=== PATIENT | female | born 1980 | race Caucasian/White ===

== ENCOUNTER 2019-04-05 07:57 | Inpatient (IN) | payer OTHER ==
[~2019-04-05] VITALS: Ht 172.7 cm; Wt 96.2 kg
[2019-04-05 08:49] VITALS: BP 140/85
--- NOTE | 2019-04-05 09:32 | PDOC1 ---
History and Physical Date of Admission Date of Admission DATE: 04/05/19 TIME: 09:32 Identification/Chief Complaint Chief Complaint transfer FROM [facility] , awoke with severe epigastric pain w/ radiation between shoulder blades on at 2:00 a.m, STILL PRESENT CT scan and labs show cholecystitis with possible common bile duct stone Past Medical History Past Medical History Past Medical History Psych: Anxiety Past Surgical History Past Surgical History: Other (salpingectomy) Family History Family History: obesity Social History No ALCOHOL: none Drugs: None Lives: with Family Cardiovascular: No pertinent hx Pulmonary: No pertinent hx Infectious disease: No pertinent hx Family History Family History: High Cholestrol Social History Smoke: No ALCOHOL: none Drugs: None Allergies Allergies: Coded Allergies: No Known Drug Allergies (Unverified , 04/05/19) ROS General: No: Chills, Night Sweats, Fatigue, Malaise, Appetite, Other PSYCHOLOGICAL ROS: YES: Anxiety; No: Behavioral Disorder, Concentration difficultie, Decreased libido, Depression, Disorientation, Hallucinations, Hostility, Irritablity, Memory difficulties, Mood Swings, Obsessive thoughts, Physical abuse, Sexual abuse, Sleep disturbances, Suicidal ideation, Other Eyes: No Blurry vision, No Decreased vision, No Double vision, No Dry eyes, No Excessive tearing, No Eye Pain, No Itchy Eyes, No Loss of vision, No Photophobia, No Scotomata, No Uses contacts, No Uses glasses, No Other HEENT: No: Heacaches, Visual Changes, Hearing change, Nasal congestion, Nasal discharge, Oral lesions, Sinus pain, Sore Throat, Epistaxis, Sneezing, Snoring, Tinnitus, Vertigo, Vocal changes, Other Hematological and Lymphatic: No: Bleeding Problems, Blood Clots, Blood Transfusions, Brusing, Night Sweats, Pallor, Swollen Lymph Nodes, Other ENDOCRINE: No: Breast Changes, Galactorrhea, Hair Pattern Changes, Hot Flashes, Malaise/lethargy, Mood Swings, Palpitations, Polydipsia/polyuria, Skin Changes, Temperature Intolerance, Unexpected Weight Changes, Other Breast: No New/Changing Breast Lumps, No Nipple changes, No Nipple discharge, No Other Respiratory: No: Cough, Hemoptysis, Orthopnea, Pleuritic Pain, Shortness of breath, SOB with excertion, Sputum Changes, Stridor, Tachypnea, Wheezing, Other Cardiovascular: No Chest Pain, No Palpitations, No Orthopnea, No Paroxysmal Noc. Dyspnea, No Edema, No Lt Headedness, No Other Gastrointestinal: Yes Nausea, Yes Vomiting, Yes Abdominal Pain; No Diarrhea, No Constipation, No Melena, No Hematochezia, No Other Genitourinary: YES Dysuria; No Frequency, No Incontinence, No Hematuria, No Retention, No Discharge, No Urgency, No Pain, No Flank Pain, No Other, No , No , No , No , No , No , No Musculoskeletal: No Gait Disturbance, No Joint Pain, No Joint Stiffness, No Joint Swelling, No Muscle Pain, No Muscular Weakness, No Pain In:, No Swelling In:, No Other Neurological: No Behavorial Changes, No Bowel/Bladder ControlChng, No Confusion, No Dizziness, No Gait Disturbance, No Headaches, No Impaired Coord/balance, No Memory Loss, No Numbness/Tingling, No Seizures, No Speech Problems, No Tremors, No Visual Changes, No Weakness, No Other Skin: No Dry Skin, No Eczema, No Hair Changes, No Lumps, No Mole Changes, No Mottling, No Nail Changes, No Pruritus, No Rash, No Skin Lesion Changes, No Other, No Acne Physical Exam General: Alert, Oriented X3, Cooperative, No acute distress, mild distress HEENT: PERRLA Lungs: Clear to auscultation, Normal air movement Heart: RRR, no thrills Cardiovascular: S1, S2 Breasts: Not examined Abdomen: Normal bowel sounds, Other (MILD EPIGASTRIC TENDERNESS) Rectal Exam: not examined PELVIC: Examination not indicated Extremities: No cyanosis Neuro: Normal speech, Strength at 5/5 X4 ext, Cranial nerves 3-12 NL Psych/Mental Status: Mental status NL, Mood NL Vitals Vitals Vital Signs Date Time Temp Pulse Resp B/P (MAP) Pulse Ox O2 Delivery O2 Flow Rate FiO2 04/05/19 08:49 98.3 17 140/85 (103) 96 Room Air 98.[address] scan and labs show cholecystitis with possible common bile duct stone VTE Prophylaxis Ordered VTE Prophylaxis Devices: Yes VTE Pharmacological Prophylaxi: Yes Assessment/Plan Assessment/Plan IMPRESSION INTRACTABLE abd pain, n/v Leukocytosis, elevated LFTs, UTI Cholelithiasis///, dilated CBD CT scan and labs show cholecystitis with possible common bile duct stone GERD -- PLAN NPO cholecystectomy w/ IOC 04/06. abd US. POSSIBLE ERCP IV PROTONIX. DVT PROPHYLAXIS IV FLUID SUPPORT EMPERIC IV ANTIBIOTICS, ZOSYN AM LABS, URINE CULTURE BLOOD CULTURE GI CONSULT GEN SURG CONSULT 67 MIN PT EXAM, CHART REVIEW, > 50% OF TIME SPENT WITH EXAM, CHART REVIEW, PT CARE COORDINATION UGO EDEN MD Apr 05, 2019 09:32
[2019-04-05] MEDS ORDERED: ALBUTEROL SULFATE 2.5 MG/3 ML NEBU. NEB PRN (09:45)
[2019-04-05] MEDS ORDERED: cloNIDine HCL 0.1 MG TABLET PO PRN (09:45)
[2019-04-05] MEDS ORDERED: DOCUSATE SODIUM 100 MG CAPSULE. PO PRN (09:45)
[2019-04-05] MEDS ORDERED: ONDANSETRON PF 4 MG/2 ML VIAL. IV PRN (09:45)
[2019-04-05] MEDS ORDERED: ACETAMINOPHEN 650 MG/20.3 ML SOLUTION. GT PRN (09:45)
[2019-04-05] MEDS ORDERED: 0.9 % SODIUM CHLORIDE 10 ML DISP.SYRIN. IV PRN (09:45)
[2019-04-05] MEDS ORDERED: SODIUM PHOSPHATES 19/7GM 133 ML ENEMA. PR PRN (09:45)
[2019-04-05] MEDS ORDERED: OMEP20TA63 PO (09:47)
[2019-04-05] MEDS ORDERED: LEXAPRO5 MG PO (09:47)
--- NOTE | 2019-04-05 10:12 | PDOC2 ---
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 However pain returned and was severe. Associated nausea and emesis. Similar symptoms in past and was evaluated at [facility] with stones, however they felt at that time more likely related to GERD CT at [facility] showing cholecystitis, possible choledocholithiasis Past Medical History Psych: Anxiety Past Surgical History Past Surgical History: Other (salpingectomy) Family History Family History: Other (noncontributory to current illness) Social History No ALCOHOL: none Drugs: None Lives: with Family Current Medications Current Medications Current Medications Sodium Chloride (Normal Saline Flush) 3 ml QSHIFT PRN IV AFTER MEDS AND BLOOD DRAWS; Start 04/05/19 at 09:45 Sodium Chloride 1,000 ml @ 100 mls/hr Q10H IV ; Start 04/05/19 at 09:33 Ondansetron HCl (Zofran) 4 mg PRN Q4HRS PRN IV NAUSEA/VOMITING; Start 04/05/19 at 09:45 Acetaminophen (Tylenol) 650 mg PRN Q4HRS PRN GT TEMP OVER 100.4F OR MILD PAIN; Start 04/05/19 at 09:45 Clonidine HCl (Catapres) 0.1 mg PRN Q6HRS PRN PO SBP>160 OR DBP>90; Start 04/05/19 at 09:45 Sodium Monofluorophosphate (Fleet Adult) 133 ml PRN DAILY PRN AR CONSTIPATION; Start 04/05/19 at 09:45 Docusate Sodium (Colace) 100 mg PRN BID PRN PO CONSTIPATION; Start 04/05/19 at 09:45 Albuterol Sulfate (Ventolin Neb Soln) 2.5 mg PRN Q4HRS PRN NEB SHORTNESS OF BREATH; Start 04/05/19 at 09:45 Lorazepam (Ativan) 0.5 mg PRN Q4HRS PRN PO ANXIETY / AGITATION; Start 04/05/19 at 09:45 Enoxaparin Sodium (Lovenox 40mg Syringe) 40 mg DAILY SQ ; Start 04/05/19 at 10:00 Piperacillin Sod/ Tazobactam Sod 3.375 gm/Sodium Chloride 50 ml @ 100 mls/hr Q6HRS IV ; Start 04/05/19 at 10:00 Active Scripts Active Reported Prilosec Otc (Omeprazole Magnesium) 20 Mg Tablet. 1 Tab PO DAILY Lexapro (Escitalopram Oxalate) 5 Mg Tablet 1 Tab PO DAILY Allergies Allergies: Coded Allergies: No Known Drug Allergies (Unverified , 04/05/19) ROS General: YES: Chills; No: Other (fevers) PSYCHOLOGICAL ROS: YES: Anxiety; No: Depression Eyes: No Blurry vision, No Double vision Hematological and Lymphatic: No: Bleeding Problems, Blood Clots Respiratory: No: Cough, Shortness of breath Cardiovascular: No Chest Pain, No Palpitations Gastrointestinal: Yes Other (see hpi) Genitourinary: No Dysuria, No Hematuria Musculoskeletal: No Joint Pain, No Muscle Pain Neurological: No Confusion, No Numbness/Tingling Skin: No Pruritus, No Rash Physical Exam General: Alert, Oriented X3, Cooperative, No acute distress HEENT: PERRLA, Mucous membr. moist/pink Lungs: Clear to auscultation, Normal air movement Heart: Regular rate, Normal S1, Normal S2, No murmurs Abdomen: Soft, Other (TTP epigastric, RUQ) Extremities: No clubbing, No cyanosis Skin: No rashes, No breakdown Neuro: Normal gait, Normal speech Psych/Mental Status: Mental status NL, Mood NL MUSCULOSKELETAL: No deformity, No swelling Vitals VITALS Vital Signs Date Time Temp Pulse Resp B/P (MAP) Pulse Ox O2 Delivery O2 Flow Rate FiO2 04/05/19 08:49 98.3 17 140/85 (103) 96 Room Air 98.3 Assessment/Plan Assessment/Plan cholecystitis, possible choledocholithiasis t bili 2.6--await Gi eval, lap khris pending GI recs UGO SALAZAR MD 04/05/19 1037: CONSULT Assessment/Plan Assessment/Plan Patient seen and examined by me having abdominal pain right upper quadrant CT scan and labs show cholecystitis with possible common bile duct stone. Her abdomen is soft nondistended tender to palpation right upper quadrant. Plan for laparoscopic cholecystectomy with intraoperative cholangiograms in a.m. Agree with Raza assessment and plan JASON MARTINS APRN Apr 05, 2019 10:11 UGO SALAZAR MD Apr 05, 2019 10:37
[2019-04-05 10:18] LABS: BASO % 0 % (0-3); EOS % 0 % (0-3); HEMATOCRIT 41.5 % (36.0-47.0); HEMOGLOBIN 14.4 g/dL (12.0-15.5); LYMPH # 0.9 x10^3/uL (1.0-4.8); LYMPH % 13 % (24-48); MEAN CORPUSCULAR HEMOGLOBIN 29 pg (25-35); MEAN CORPUSCULAR HGB CONC 35 g/dL (31-37); MEAN CORPUSCULAR VOLUME 83 fL (79-100); MONO # 0.5 x10^3/uL (0.0-1.1); MONO % 7 % (0-9); NEUT # 5.6 x10^3/uL (1.8-7.7); NEUT % 79 % (31-73); PLATELET COUNT 336 x10^3/uL (140-400); RED BLOOD COUNT 4.98 x10^6/uL (3.50-5.40); RED CELL DISTRIBUTION WIDTH 12.9 % (11.5-14.5); WHITE BLOOD COUNT 7.1 x10^3/uL (4.0-11.0)
[2019-04-05] MEDS: IV NORMAL SALINE 1000ML BAG 1,000 ML IV SCH (10:18)
[2019-04-05] MEDS: PIPERACILLIN/TAZOBACTAM 3.375 GM in IV NORMAL SALINE 50ML 50 ML IV SCH ×2 (10:18→17:55)
[2019-04-05 10:38] LABS: CALCIUM 9.5 mg/dL (8.5-10.1); CREATININE 0.8 mg/dL (0.6-1.0); GFR 79.9; TOTAL BILIRUBIN 4.3 mg/dL (0.2-1.0); TOTAL PROTEIN 8.2 g/dL (6.4-8.2)
[2019-04-05 11:00] VITALS: BP 135/81
--- NOTE | 2019-04-05 11:03 | PDOC2 ---
GI CONSULT Reason For Consult: Cholecystitis HPI: HPI: 38 y/o female w/ h/o gallstones. Saw a surgeon last summer for this - was having some upper abd pain w/ bloating at that time, improved w/ burping. Also had some heartburn. Thought possibly related to GERD, cholecystectomy not pursued. Took Prilosec for awhile, felt better. Stopped w/o recurrent issues. Did have a similar episode of pain last July that resolved w/ GI cocktail. On Monday, had "a little" pain after eating pizza and ice cream. Then awoke with severe epigastric pain w/ radiation between shoulder blades on at 2:00 a.m. Pain has settled a little lower in abd and back. Associated w/ vomiting. Evaluated at [facility] and transferred here. Labs noted WBC 12.7, Hgb 15, normal plt and INR, UA +nitrite, normal BUN and Cr, bili 2.6, direct 1.5, AST 329, ALT 158, Alk Phos 118, normal lipase. On CT: cholelithiasis w/ mild GB thickening and inflammatory stranding, CBD 1 3mm. No dysphagia, hematemesis, diarrhea, constipation, hematochezia, melena, change in appetite, or weight loss. No previous EGD or colonoscopy. No liver, pancreas, or PUD history. Occasional Excedrin use in the past for migraines. PMH: PMH: anxiety, migraines, GERD, ectopic , salpingectomy Social History: Smoke: No ALCOHOL: rare Drugs: None ROS: GEN: Denies fevers, chills, sweats HEENT: Denies blurred vision, sore throat CV: Denies chest pain RESP: Denies shortness of air, cough GI: Per HPI : Denies hematuria, dysuria ENDO: Denies weight changes NEURO: Denies confusion, dizziness MSK: Denies weakness, joint pain/swelling SKIN: Denies jaundice, pruritus Vitals: Vitals: Vital Signs Date Time Temp Pulse Resp B/P (MAP) Pulse Ox O2 Delivery O2 Flow Rate FiO2 04/05/19 08:49 98.3 17 140/85 (103) 96 Room Air 98.3 Labs: Labs: Laboratory Tests Test 04/05/19 10:05 White Blood Count 7.1 x10^3/uL (4.0-11.0) Red Blood Count 4.98 x10^6/uL (3.50-5.40) Hemoglobin 14.4 g/dL (12.0-15.5) Hematocrit 41.5 % (36.0-47.0) Mean Corpuscular Volume 83 fL (79-100) Mean Corpuscular Hemoglobin 29 pg (25-35) Mean Corpuscular Hemoglobin Concent 35 g/dL (31-37) Red Cell Distribution Width 12.9 % (11.5-14.5) Platelet Count 336 x10^3/uL (140-400) Neutrophils (%) (Auto) 79 % (31-73) Lymphocytes (%) (Auto) 13 % (24-48) Monocytes (%) (Auto) 7 % (0-9) Eosinophils (%) (Auto) 0 % (0-3) Basophils (%) (Auto) 0 % (0-3) Neutrophils # (Auto) 5.6 x10^3/uL (1.8-7.7) Lymphocytes # (Auto) 0.9 x10^3/uL (1.0-4.8) Monocytes # (Auto) 0.5 x10^3/uL (0.0-1.1) Eosinophils # (Auto) 0.0 x10^3/uL (0.0-0.7) Basophils # (Auto) 0.0 x10^3/uL (0.0-0.2) Sodium Level 139 mmol/L (136-145) Potassium Level 4.0 mmol/L (3.5-5.1) Chloride Level 100 mmol/L (98-107) Carbon Dioxide Level 29 mmol/L (21-32) Anion Gap 10 (6-14) Blood Urea Nitrogen 7 mg/dL (7-20) Creatinine 0.8 mg/dL (0.6-1.0) Estimated GFR (Cockcroft-Gault) 79.9 BUN/Creatinine Ratio 9 (6-20) Glucose Level 126 mg/dL (70-99) Calcium Level 9.5 mg/dL (8.5-10.1) Total Bilirubin 4.3 mg/dL (0.2-1.0) Aspartate Amino Transf (AST/SGOT) 584 U/L (15-37) Alanine Aminotransferase (ALT/SGPT) 339 U/L (14-59) Alkaline Phosphatase 148 U/L (46-116) Total Protein 8.2 g/dL (6.4-8.2) Albumin 4.0 g/dL (3.4-5.0) Albumin/Globulin Ratio 1.0 (1.0-1.7) Allergies: Coded Allergies: No Known Drug Allergies (Unverified , 04/05/19) Medications: Current Medications Medications (Trade) Dose Ordered Sig/Palmer Route PRN Reason Start Time Stop Time Status Last Admin Dose Admin Sodium Chloride 1,000 ml @ 100 mls/hr Q10H IV 04/05/19 09:33 04/05/19 10:18 Piperacillin Sod/ Tazobactam Sod 3.375 gm/Sodium Chloride 50 ml @ 100 mls/hr Q6HRS IV 04/05/19 10:00 04/05/19 10:18 Imaging: Imaging: Per HPI. PE: GEN: NAD HEENT: Atraumatic, PERRL LUNGS: CTAB HEART: RRR ABD: NABS, S/ND, epigastric discomfort EXTREMITY: No edema SKIN: No rashes, no jaundice NEURO/PSYCH: A & O �3 A/P: A/P: Recurrent abd pain, n/v Leukocytosis, elevated LFTs, ?UTI Cholelithiasis, dilated CBD Suspected GERD CRC screen - average risk -- D/w Janie and Dr. Carranza - plans for cholecystectomy w/ IOC tomorrow. Follow labs and check abd US. Did discuss ERCP w/ her if indicated. 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 BRUNA AGUIRRE Apr 05, 2019 11:03
[2019-04-05] MEDS: PANTOPRAZOLE IV PUSH 40 MG VIAL. IVP SCH (11:12)
[2019-04-05] MEDS: ENOXAPARIN 40 MG/0.4 ML SYRINGE. SQ SCH (11:13)
[2019-04-05] MEDS: HYDROmorphone 2 MG/ML VIAL IV PRN (12:09)
[2019-04-05 15:00] VITALS: BP 112/62
--- NOTE | 2019-04-05 15:31 | RAD ---
Indication:Cholelithiasis. Dilated CBD. TECHNIQUE: Grayscale, color Doppler and spectral waveform is of the abdomen obtained. COMPARISON:None FINDINGS: Pancreas is within normal limits. Pancreatic tail not visualized due to overlying bowel gas. CBD is dilated measuring 7 mm. Gallstones noted. No pericholecystic fluid or gallbladder wall thickening. IVC within normal limits. Liver measures 15 cm in longest dimension and is normal in size with increased echogenicity. Main portal vein is patent. Hepatic veins are patent. Right kidney measures 10.2 cm in length without hydronephrosis. Distal aorta not visualized due to overlying bowel gas. IMPRESSION: 1. Cholelithiasis without imaging evidence of acute cholecystitis. If concern for acute cholecystitis is high consider further evaluation with HIDA scan. 2. Dilated CBD may be secondary to distal obstruction from stone, stricture or mass. MRCP can be obtained for further evaluation. 3. Hepatic steatosis. Electronically signed by: Panchito Maynard DO (04/05/2019 3:28 PM) [facility]
[2019-04-05 19:00] VITALS: BP 123/67
[2019-04-05 19:53] LABS: BILIRUBIN,URINE LARGE (NEG); CLARITY,URINE CLEAR; PROTEIN,URINE 30 mg/dL (NEG-TRACE)
[2019-04-05 20:04] LABS: U PREG PATIENT NEGATIVE (NEG)
[2019-04-05 20:09] LABS: COLOR,URINE AMBER
[2019-04-05 20:12] LABS: BACTERIA,URINE 0 /HPF (0-FEW); RBC,URINE OCC /HPF (0-2); SQUAMOUS EPITHELIAL CELL,UR MOD /LPF
[2019-04-05 20:15] LABS: NITRITE,URINE NEGATIVE (NEG)
[2019-04-05 23:00] VITALS: BP 98/59
[2019-04-06] VITALS (10 sets, daily range): BP systolic 86–125; BP diastolic 45–71
[2019-04-06] MEDS: IV NORMAL SALINE 1000ML BAG 1,000 ML IV SCH ×3 (01:07→15:33)
[2019-04-06] MEDS: PIPERACILLIN/TAZOBACTAM 3.375 GM in IV NORMAL SALINE 50ML 50 ML IV SCH ×4 (01:07→17:56)
[2019-04-06 05:34] LABS: BASO % 1 % (0-3); EOS # 0.2 x10^3/uL (0.0-0.7); EOS % 4 % (0-3); HEMATOCRIT 37.4 % (36.0-47.0); HEMOGLOBIN 12.8 g/dL (12.0-15.5); LYMPH # 0.9 x10^3/uL (1.0-4.8); LYMPH % 15 % (24-48); MEAN CORPUSCULAR HEMOGLOBIN 29 pg (25-35); MEAN CORPUSCULAR HGB CONC 34 g/dL (31-37); MEAN CORPUSCULAR VOLUME 84 fL (79-100); MONO # 0.4 x10^3/uL (0.0-1.1); MONO % 7 % (0-9); NEUT # 4.2 x10^3/uL (1.8-7.7); NEUT % 73 % (31-73); PLATELET COUNT 264 x10^3/uL (140-400); RED BLOOD COUNT 4.44 x10^6/uL (3.50-5.40); WHITE BLOOD COUNT 5.8 x10^3/uL (4.0-11.0)
[2019-04-06 05:55] LABS: ALBUMIN 3.2 g/dL (3.4-5.0); ALBUMIN/GLOBULIN RATIO 0.9 (1.0-1.7); CALCIUM 8.4 mg/dL (8.5-10.1); CREATININE 0.8 mg/dL (0.6-1.0); GFR 79.9; POTASSIUM 3.7 mmol/L (3.5-5.1); TOTAL BILIRUBIN 2.6 mg/dL (0.2-1.0); TOTAL PROTEIN 6.7 g/dL (6.4-8.2)
[2019-04-06] MEDS ORDERED: SURGICEL HEMOSTAT 4X8 EACH. ONE (06:19)
[2019-04-06] MEDS ORDERED: BUPIVACAINE-EPI 0.25%-1:200000 MPF 30 ML VIAL. ONE (06:19)
[2019-04-06] MEDS ORDERED: IOHEXOL 300 MG/ML 50 ML VIAL. ONE (06:19)
[2019-04-06] MEDS ORDERED: fentaNYL PF VIAL 100 MCG/2 ML VIAL IV PRN (07:00)
[2019-04-06] MEDS ORDERED: IV RINGERS,LACTATED 1000ML 1,000 ML IV SCH (07:00)
[2019-04-06] MEDS ORDERED: MORPHINE SULFATE 2 MG/ML VIAL. IV PRN (07:00)
[2019-04-06] MEDS ORDERED: HYDROmorphone 2 MG/ML VIAL IV PRN (07:00)
[2019-04-06] MEDS ORDERED: PROCHLORPERAZINE 10 MG/2 ML VIAL. IV PRN (07:00)
[2019-04-06] MEDS ORDERED: ONDANSETRON PF 4 MG/2 ML VIAL. ONE (07:11)
[2019-04-06] MEDS ORDERED: DEXAMETHASONE SOD PHOS 4 MG/ML VIAL ONE (07:11)
[2019-04-06] MEDS ORDERED: PROPOFOL 20 ML IV ONE (07:11)
[2019-04-06] MEDS ORDERED: ROCURONIUM 50 MG/5 ML VIAL. ONE ×2 (07:11→08:43)
[2019-04-06] MEDS ORDERED: LIDOCAINE 2% PF 5 ML VIAL. ONE (07:11)
[2019-04-06] MEDS: PANTOPRAZOLE IV PUSH 40 MG VIAL. IVP SCH (07:30)
[2019-04-06] MEDS ORDERED: GLUCAGON,HUMAN RECOMBINANT 1 MG/ML VIAL. ONE (07:35)
[2019-04-06] MEDS ORDERED: SEVOFLURANE 61 TO 120 MINUTES. IH ONE (07:42)
[2019-04-06] MEDS ORDERED: fentaNYL PF VIAL 100 MCG/2 ML VIAL ONE (07:42)
[2019-04-06] MEDS ORDERED: KETOROLAC 30 MG/ML INJ FOR OR. INJ ONE (07:42)
[2019-04-06] MEDS ORDERED: MIDAZOLAM HCL/PF 2 MG/2 ML VIAL. ONE (07:42)
[2019-04-06] MEDS ORDERED: NEOSTIGMINE 10 MG/10 ML VIAL. ONE (08:22)
[2019-04-06] MEDS ORDERED: GLYCOPYRROLATE 1 MG/5 ML VIAL. ONE (08:23)
--- NOTE | 2019-04-06 09:12 | PDOC4 ---
Operative Note Operative Note Date: 04/06/2019 Preoperative diagnosis: Acute cholecystitis with choledocholithiasis Postoperative diagnosis: Same Procedure: Laparoscopic cholecystectomy with intraoperative cholangiograms Surgeon: Dillon Specimen: Gallbladder Dictation: Patient is a 38-year-old female was made in the hospital with right upper quadrant abdominal pain and mild jaundice elevated LFTs. CT scan showed dilated common bile duct with signs consistent with acute cholecystitis. Procedure laparoscopic cholecystectomy was explained to the patient detail risk benefits were also discussed including bleeding infection injury to intra- abdominal contents possibly necessitating further or open operations alternatives to this procedure also discussed with patient who seemed to understand gave both verbal and written consent to have the procedure performed. Patient was taken to the operating room placed in supine position general anesthesia was initiated once patient was sleep and intubated her abdomen was prepped and draped usual sterile fashion using ChloraPrep and area just below the umbilicus was injected with quarter percent Marcaine with epinephrine incision was made 11 blade scalpel varies needle was placed within the abdomen creating pneumoperitoneum once this complete 11 mm port was placed and a 5mm camera was placed within the abdomen which was inspected no other abdomen maladies were noted. A 5mm Port was placed in the epigastrium a 5 mm port was placed in the right mid abdomen and one in the right lateral abdomen all under direct visualization the dome of the gallbladder is grasped and cephalad inf undibulum gallbladder is grasped rectum laterally exposing the triangle adherent tissues try were taken down exposing the cystic duct and cystic artery the artery was doubly clipped and transected the cystic duct was quite large dilated so the 5 mm epigastric port was changed out for a 12 mm and a large Hem-o-vipul clip was placed on the cystic duct on the gallbladder side the cystic duct was then partially opened with Endo Sharri scissors there is a found amount of bile released a glandular catheter was then placed in the anterior abdominal wall through 14-gauge Angiocath this was placed within the cystic duct and a cholangiogram was shot showing good retrograde flow into the hepatic radicals but no flow into the duodenum basically came to prep stop and appears to be the ampulla likely secondary to stone. Several maneuvers were made to try to flush the stone glucagon was given and then flushed again no apparent avail at this point cleanser Ok catheter was removed the duct was clipped with a Hem-o-vipul clip and transected the gallbladder is taken off the liver with a clot cautery placed in Endo Catch bag movement umbilicus right upper quadrant was irrigated and suctioned dry hemostasis deemed to be appropriate and the pneumoperitoneum was reduced all ports removed the fascial defect at the umbilicus closed [id number] Vicryl suture and skin was approximate all port sites for sep tic and a Monocryl Mastisol Steri-Strips and island dressings were applied. Patient was awakened and asked bated in the operating room taken to recovery in stable condition all sponge instrument needle counts listed as correct estimated blood loss 10 mL. UGO SALAZAR MD Apr 06, 2019 09:12
[2019-04-06] MEDS: fentaNYL PF VIAL 100 MCG/2 ML VIAL IV PRN ×2 (09:51→10:00)
--- NOTE | 2019-04-06 11:01 | PDOC ---
PROGRESS NOTES Chief Complaint Chief Complaint Acute cholecystitis with choledocholithiasis acute abd pain, w n/v Leukocytosis, no SIRS, elevated LFTs, UTI GERD BMI 32 -- History of Present Illness History of Present Illness cholecystectomy w/ IOC this AM. Dr. Crandall, pt has some post-op confusion, pain is better, doing well, cont pain control, IV fluids, try clear liquids lunch Vitals Vitals Vital Signs Date Time Temp Pulse Resp B/P (MAP) Pulse Ox O2 Delivery O2 Flow Rate FiO2 04/06/19 10:00 18 94 Room Air 04/06/19 09:55 66 121/68 04/06/19 09:25 8 04/06/19 09:11 97.6 97.6 Physical Exam General: Alert, Oriented X3, Cooperative, No acute distress, mild distress Heart: Regular rate, Normal S1, Normal S2, No murmurs Abdomen: Normal bowel sounds, Other (MILD EPIGASTRIC TENDERNESS) Extremities: No cyanosis Skin: No rashes, No breakdown Labs LABS Laboratory Tests Test 04/05/19 18:10 04/06/19 05:15 Urine Collection Type Unknown Urine Color Mirella Urine Clarity Clear Urine pH 6.0 Urine Specific [place] 1.015 Urine Protein 30 mg/dL (NEG-TRACE) Urine Glucose (UA) Negative mg/dL (NEG) Urine Ketones (Stick) 15 mg/dL (NEG) Urine Blood Negative (NEG) Urine Nitrite Negative (NEG) Urine Bilirubin Large (NEG) Urine Urobilinogen Dipstick 1.0 mg/dL (0.2 mg/dL) Urine Leukocyte Esterase Negative (NEG) Urine RBC Occ /HPF (0-2) Urine WBC 1-4 /HPF (0-4) Urine Squamous Epithelial Cells Mod /LPF Urine Bacteria 0 /HPF (0-FEW) Urine Mucus Slight /LPF Urine Test Negative (NEG) White Blood Count 5.8 x10^3/uL (4.0-11.0) Red Blood Count 4.44 x10^6/uL (3.50-5.40) Hemoglobin 12.8 g/dL (12.0-15.5) Hematocrit 37.4 % (36.0-47.0) Mean Corpuscular Volume 84 fL (79-100) Mean Corpuscular Hemoglobin 29 pg (25-35) Mean Corpuscular Hemoglobin Concent 34 g/dL (31-37) Red Cell Distribution Width 13.0 % (11.5-14.5) Platelet Count 264 x10^3/uL (140-400) Neutrophils (%) (Auto) 73 % (31-73) Lymphocytes (%) (Auto) 15 % (24-48) Monocytes (%) (Auto) 7 % (0-9) Eosinophils (%) (Auto) 4 % (0-3) Basophils (%) (Auto) 1 % (0-3) Neutrophils # (Auto) 4.2 x10^3/uL (1.8-7.7) Lymphocytes # (Auto) 0.9 x10^3/uL (1.0-4.8) Monocytes # (Auto) 0.4 x10^3/uL (0.0-1.1) Eosinophils # (Auto) 0.2 x10^3/uL (0.0-0.7) Basophils # (Auto) 0.0 x10^3/uL (0.0-0.2) Sodium Level 141 mmol/L (136-145) Potassium Level 3.7 mmol/L (3.5-5.1) Chloride Level 105 mmol/L (98-107) Carbon Dioxide Level 26 mmol/L (21-32) Anion Gap 10 (6-14) Blood Urea Nitrogen 9 mg/dL (7-20) Creatinine 0.8 mg/dL (0.6-1.0) Estimated GFR (Cockcroft-Gault) 79.9 BUN/Creatinine Ratio 11 (6-20) Glucose Level 86 mg/dL (70-99) Calcium Level 8.4 mg/dL (8.5-10.1) Total Bilirubin 2.6 mg/dL (0.2-1.0) Aspartate Amino Transf (AST/SGOT) 359 U/L (15-37) Alanine Aminotransferase (ALT/SGPT) 396 U/L (14-59) Alkaline Phosphatase 148 U/L (46-116) Total Protein 6.7 g/dL (6.4-8.2) Albumin 3.2 g/dL (3.4-5.0) Albumin/Globulin Ratio 0.9 (1.0-1.7) Comment Review of Relevant I have reviewed the following items shelton (where applicable) has been applied. Labs Laboratory Tests Test 04/05/19 10:05 7/19/19 18:10 04/06/19 05:15 White Blood Count 7.1 x10^3/uL (4.0-11.0) 5.8 x10^3/uL (4.0-11.0) Red Blood Count 4.98 x10^6/uL (3.50-5.40) 4.44 x10^6/uL (3.50-5.40) Hemoglobin 14.4 g/dL (12.0-15.5) 12.8 g/dL (12.0-15.5) Hematocrit 41.5 % (36.0-47.0) 37.4 % (36.0-47.0) Mean Corpuscular Volume 83 fL (79-100) 84 fL (79-100) Mean Corpuscular Hemoglobin 29 pg (25-35) 29 pg (25-35) Mean Corpuscular Hemoglobin Concent 35 g/dL (31-37) 34 g/dL (31-37) Red Cell Distribution Width 12.9 % (11.5-14.5) 13.0 % (11.5-14.5) Platelet Count 336 x10^3/uL (140-400) 264 x10^3/uL (140-400) Neutrophils (%) (Auto) 79 % (31-73) 73 % (31-73) Lymphocytes (%) (Auto) 13 % (24-48) 15 % (24-48) Monocytes (%) (Auto) 7 % (0-9) 7 % (0-9) Eosinophils (%) (Auto) 0 % (0-3) 4 % (0-3) Basophils (%) (Auto) 0 % (0-3) 1 % (0-3) Neutrophils # (Auto) 5.6 x10^3/uL (1.8-7.7) 4.2 x10^3/uL (1.8-7.7) Lymphocytes # (Auto) 0.9 x10^3/uL (1.0-4.8) 0.9 x10^3/uL (1.0-4.8) Monocytes # (Auto) 0.5 x10^3/uL (0.0-1.1) 0.4 x10^3/uL (0.0-1.1) Eosinophils # (Auto) 0.0 x10^3/uL (0.0-0.7) 0.2 x10^3/uL (0.0-0.7) Basophils # (Auto) 0.0 x10^3/uL (0.0-0.2) 0.0 x10^3/uL (0.0-0.2) Sodium Level 139 mmol/L (136-145) 141 mmol/L (136-145) Potassium Level 4.0 mmol/L (3.5-5.1) 3.7 mmol/L (3.5-5.1) Chloride Level 100 mmol/L (98-107) 105 mmol/L (98-107) Carbon Dioxide Level 29 mmol/L (21-32) 26 mmol/L (21-32) Anion Gap 10 (6-14) 10 (6-14) Blood Urea Nitrogen 7 mg/dL (7-20) 9 mg/dL (7-20) Creatinine 0.8 mg/dL (0.6-1.0) 0.8 mg/dL (0.6-1.0) Estimated GFR (Cockcroft-Gault) 79.9 79.9 BUN/Creatinine Ratio 9 (6-20) 11 (6-20) Glucose Level 126 mg/dL (70-99) 86 mg/dL (70-99) Calcium Level 9.5 mg/dL (8.5-10.1) 8.4 mg/dL (8.5-10.1) Total Bilirubin 4.3 mg/dL (0.2-1.0) 2.6 mg/dL (0.2-1.0) Aspartate Amino Transf (AST/SGOT) 584 U/L (15-37) 359 U/L (15-37) Alanine Aminotransferase (ALT/SGPT) 339 U/L (14-59) 396 U/L (14-59) Alkaline Phosphatase 148 U/L (46-116) 148 U/L (46-116) Total Protein 8.2 g/dL (6.4-8.2) 6.7 g/dL (6.4-8.2) Albumin 4.0 g/dL (3.4-5.0) 3.2 g/dL (3.4-5.0) Albumin/Globulin Ratio 1.0 (1.0-1.7) 0.9 (1.0-1.7) Urine Collection Type Unknown Urine Color Mirella Urine Clarity Clear Urine pH 6.0 Urine Specific [place] 1.015 Urine Protein 30 mg/dL (NEG-TRACE) Urine Glucose (UA) Negative mg/dL (NEG) Urine Ketones (Stick) 15 mg/dL (NEG) Urine Blood Negative (NEG) Urine Nitrite Negative (NEG) Urine Bilirubin Large (NEG) Urine Urobilinogen Dipstick 1.0 mg/dL (0.2 mg/dL) Urine Leukocyte Esterase Negative (NEG) Urine RBC Occ /HPF (0-2) Urine WBC 1-4 /HPF (0-4) Urine Squamous Epithelial Cells Mod /LPF Urine Bacteria 0 /HPF (0-FEW) Urine Mucus Slight /LPF Urine Test Negative (NEG) Laboratory Tests Test 04/05/19 18:10 04/06/19 05:15 Urine Collection Type Unknown Urine Color Mirella Urine Clarity Clear Urine pH 6.0 Urine Specific [place] 1.015 Urine Protein 30 mg/dL (NEG-TRACE) Urine Glucose (UA) Negative mg/dL (NEG) Urine Ketones (Stick) 15 mg/dL (NEG) Urine Blood Negative (NEG) Urine Nitrite Negative (NEG) Urine Bilirubin Large (NEG) Urine Urobilinogen Dipstick 1.0 mg/dL (0.2 mg/dL) Urine Leukocyte Esterase Negative (NEG) Urine RBC Occ /HPF (0-2) Urine WBC 1-4 /HPF (0-4) Urine Squamous Epithelial Cells Mod /LPF Urine Bacteria 0 /HPF (0-FEW) Urine Mucus Slight /LPF Urine Test Negative (NEG) White Blood Count 5.8 x10^3/uL (4.0-11.0) Red Blood Count 4.44 x10^6/uL (3.50-5.40) Hemoglobin 12.8 g/dL (12.0-15.5) Hematocrit 37.4 % (36.0-47.0) Mean Corpuscular Volume 84 fL (79-100) Mean Corpuscular Hemoglobin 29 pg (25-35) Mean Corpuscular Hemoglobin Concent 34 g/dL (31-37) Red Cell Distribution Width 13.0 % (11.5-14.5) Platelet Count 264 x10^3/uL (140-400) Neutrophils (%) (Auto) 73 % (31-73) Lymphocytes (%) (Auto) 15 % (24-48) Monocytes (%) (Auto) 7 % (0-9) Eosinophils (%) (Auto) 4 % (0-3) Basophils (%) (Auto) 1 % (0-3) Neutrophils # (Auto) 4.2 x10^3/uL (1.8-7.7) Lymphocytes # (Auto) 0.9 x10^3/uL (1.0-4.8) Monocytes # (Auto) 0.4 x10^3/uL (0.0-1.1) Eosinophils # (Auto) 0.2 x10^3/uL (0.0-0.7) Basophils # (Auto) 0.0 x10^3/uL (0.0-0.2) Sodium Level 141 mmol/L (136-145) Potassium Level 3.7 mmol/L (3.5-5.1) Chloride Level 105 mmol/L (98-107) Carbon Dioxide Level 26 mmol/L (21-32) Anion Gap 10 (6-14) Blood Urea Nitrogen 9 mg/dL (7-20) Creatinine 0.8 mg/dL (0.6-1.0) Estimated GFR (Cockcroft-Gault) 79.9 BUN/Creatinine Ratio 11 (6-20) Glucose Level 86 mg/dL (70-99) Calcium Level 8.4 mg/dL (8.5-10.1) Total Bilirubin 2.6 mg/dL (0.2-1.0) Aspartate Amino Transf (AST/SGOT) 359 U/L (15-37) Alanine Aminotransferase (ALT/SGPT) 396 U/L (14-59) Alkaline Phosphatase 148 U/L (46-116) Total Protein 6.7 g/dL (6.4-8.2) Albumin 3.2 g/dL (3.4-5.0) Albumin/Globulin Ratio 0.9 (1.0-1.7) Microbiology 04/05/19 Blood Culture - Preliminary, Resulted NO GROWTH AFTER 1 DAY Medications Current Medications Sodium Chloride (Normal Saline Flush) 3 ml QSHIFT PRN IV AFTER MEDS AND BLOOD DRAWS; Start 04/05/19 at 09:45 Sodium Chloride 1,000 ml @ 100 mls/hr Q10H IV Last administered on 04/06/19at 01:07; Start 04/05/19 at 09:33 Ondansetron HCl (Zofran) 4 mg PRN Q4HRS PRN IV NAUSEA/VOMITING; Start 04/05/19 at 09:45 Acetaminophen (Tylenol) 650 mg PRN Q4HRS PRN GT TEMP OVER 100.4F OR MILD PAIN; Start 04/05/19 at 09:45 Clonidine HCl (Catapres) 0.1 mg PRN Q6HRS PRN PO SBP>160 OR DBP>90; Start 04/05/19 at 09:45 Sodium Monofluorophosphate (Fleet Adult) 133 ml PRN DAILY PRN IA CONSTIPATION; Start 04/05/19 at 09:45 Docusate Sodium (Colace) 100 mg PRN BID PRN PO CONSTIPATION; Start 04/05/19 at 09:45 Albuterol Sulfate (Ventolin Neb Soln) 2.5 mg PRN Q4HRS PRN NEB SHORTNESS OF BREATH; Start 04/05/19 at 09:45 Lorazepam (Ativan) 0.5 mg PRN Q4HRS PRN PO ANXIETY / AGITATION; Start 04/05/19 at 09:45 Enoxaparin Sodium (Lovenox 40mg Syringe) 40 mg DAILY SQ Last administered on 04/05/19at 11:13; Start 04/05/19 at 10:00 Piperacillin Sod/ Tazobactam Sod 3.375 gm/Sodium Chloride 50 ml @ 100 mls/hr Q6HRS IV Last administered on 04/06/19at 06:38; Start 04/05/19 at 10:00 Fentanyl Citrate (Fentanyl 2ml Vial) 25 mcg PRN Q5MIN PRN IV MILD PAIN 1-3; Start 04/06/19 at 07:00; Stop 04/07/19 at 06:59 Fentanyl Citrate (Fentanyl 2ml Vial) 50 mcg PRN Q5MIN PRN IV MODERATE TO SEVERE PAIN Last administered on 04/06/19at 10:00; Start 04/06/19 at 07:00; Stop 04/07/19 at 06:59 Morphine Sulfate (Morphine Sulfate) 1 mg PRN Q10MIN PRN IV SEVERE PAIN 7-10; Start 04/06/19 at 07:00; Stop 04/07/19 at 06:59 Ringer's Solution 1,000 ml @ 30 mls/hr Q24H IV ; Start 04/06/19 at 07:00; Stop 04/06/19 at 18:59 Hydromorphone HCl (Dilaudid) 0.5 mg PRN Q10MIN PRN IV SEV PAIN, Second choice; Start 04/06/19 at 07:00; Stop 04/07/19 at 06:59 Prochlorperazine Edisylate (Compazine) 5 mg PACU PRN PRN IV NAUSEA, MRX1; Start 04/06/19 at 07:00; Stop 04/07/19 at 06:59 Pantoprazole Sodium (PROTONIX VIAL for IV PUSH) 40 mg DAILYAC IVP Last administered on 04/05/19at 11:12; Start 04/05/19 at 12:00; Stop 04/06/19 at 10:51; Status DC Hydromorphone HCl (Dilaudid) 1 mg PRN Q4HRS PRN IV SEVERE PAIN 7-10 Last administered on 04/05/19at 12:09; Start 04/05/19 at 12:00 Dexamethasone Sodium Phosphate (Decadron) 4 mg STK-MED ONCE .ROUTE ; Start 04/06/19 at 07:11; Stop 04/06/19 at 07:12; Status DC Propofol 20 ml @ As Directed STK-MED ONCE IV ; Start 04/06/19 at 07:11; Stop 04/06/19 at 07:12; Status DC Lidocaine HCl (Lidocaine Pf 2% Vial) 5 ml STK-MED ONCE .ROUTE ; Start 04/06/19 at 07:11; Stop 04/06/19 at 07:12; Status DC Ondansetron HCl (Zofran) 4 mg STK-MED ONCE .ROUTE ; Start 04/06/19 at 07:11; Stop 04/06/19 at 07:12; Status DC Rocuronium [place] (Zemuron) 50 mg STK-MED ONCE .ROUTE ; Start 04/06/19 at 07:11; Stop 04/06/19 at 07:12; Status DC Iohexol (Omnipaque 300 Mg/ml) 50 ml STK-MED ONCE .ROUTE Last administered on 04/06/19at 08:13; Start 04/06/19 at 06:19; Stop 04/06/19 at 07:19; Status DC Cellulose (Surgicel Hemostat 4x8) 1 each STK-MED ONCE .ROUTE ; Start 04/06/19 at 06:19; Stop 04/06/19 at 07:19; Status DC Bupivacaine HCl/ Epinephrine Bitart (Sensorcaine-Epi 0.25%-1:914968 Mpf) 30 ml STK-MED ONCE .ROUTE Last administered on 04/06/19at 08:13; Start 04/06/19 at 06:19; Stop 04/06/19 at 07:20; Status DC Fentanyl Citrate (Fentanyl 2ml Vial) 100 mcg STK-MED ONCE .ROUTE ; Start at 07:42; Stop 04/06/19 at 07:43; Status DC Midazolam HCl (Versed) 2 mg STK-MED ONCE .ROUTE ; Start 04/06/19 at 07:42; Stop 04/06/19 at 07:43; Status DC Ketorolac Tromethamine (Toradol For Or Only) 30 mg STK-MED ONCE INJ ; Start 04/06/19 at 07:42; Stop 04/06/19 at 07:43; Status DC Sevoflurane (Ultane) 60 ml STK-MED ONCE IH ; Start 04/06/19 at 07:42; Stop 04/06/19 at 07:43; Status DC Neostigmine Methylsulfate (Bloxiverz) 10 mg STK-MED ONCE .ROUTE ; Start 04/06/19 at 08:22; Stop 04/06/19 at 08:23; Status DC Glycopyrrolate (Robinul) 1 mg STK-MED ONCE .ROUTE ; Start 04/06/19 at 08:23; Stop 04/06/19 at 08:24; Status DC Glucagon (Glucagen) 1 mg STK-MED ONCE .ROUTE ; Start 04/06/19 at 07:35; Stop 04/06/19 at 08:36; Status DC Rocuronium [place] (Zemuron) 50 mg STK-MED ONCE .ROUTE ; Start 04/06/19 at 08:43; Stop 04/06/19 at 08:44; Status DC Citalopram Hydrobromide (CeleXA) 10 mg DAILY PO ; Start 04/06/19 at 11:00 Pantoprazole Sodium (Protonix) 40 mg DAILYAC PO ; Start 04/07/19 at 07:30 Active Scripts Active Reported Prilosec Otc (Omeprazole Magnesium) 20 Mg Tablet.dr 1 Tab PO DAILY Lexapro (Escitalopram Oxalate) 5 Mg Tablet 1 Tab PO DAILY Vitals/I & O Vital Sign - Last 24 Hours 04/05/19 04/05/19 04/05/19 04/05/19 11:00 12:09 13:11 15:00 Temp 97.9 98.6 97.9 98.6 Pulse 63 79 Resp 17 17 B/P (MAP) 135/81 (99) 112/62 (79) Pulse Ox 95 95 O2 Delivery Room Air Room Air Room Air Room Air 04/05/19 04/05/19 04/05/19 04/06/19 19:00 19:50 23:00 03:00 Temp 97.9 98.1 98.1 97.9 98.1 98.1 Pulse 75 70 75 Resp 17 17 16 B/P (MAP) 123/67 (85) 98/59 (72) 118/62 (80) Pulse Ox 96 95 96 O2 Delivery Room Air Room Air Room Air Room Air 04/06/19 04/06/19 04/06/19 04/06/19 09:11 09:25 09:40 09:51 Temp 97.6 97.6 Pulse 84 75 75 Resp 16 16 16 20 B/P (MAP) 127/68 128/71 117/76 Pulse Ox 98 99 95 94 O2 Delivery Simple Mask Simple Mask Room Air Room Air O2 Flow Rate 8 8 04/06/19 04/06/19 09:55 10:00 Pulse 66 Resp 14 18 B/P (MAP) 121/68 Pulse Ox 95 94 O2 Delivery Room Air Room Air Intake and Output 04/05/19 04/05/19 04/06/19 14:59 22:59 06:59 Intake Total 1050 ml Output Total 110 ml 0 ml Balance -110 ml 1050 ml CASSI HICKS MD Apr 06, 2019 11:01
[2019-04-06] MEDS: CITALOPRAM 10 MG TABLET. PO SCH (13:41)
[2019-04-06] MEDS: LORazepam 0.5 MG TABLET PO PRN ×2 (13:41→21:26)
[2019-04-06] MEDS: ENOXAPARIN 40 MG/0.4 ML SYRINGE. SQ SCH (13:42)
[2019-04-06] MEDS ORDERED: ACETAMINOPHEN 325 MG TABLET. PO PRN (14:00)
[2019-04-06] MEDS: HYDROmorphone 2 MG/ML VIAL IV PRN (20:06)
[2019-04-06] MEDS: HYDROcodone/APAP 5/325MG 1 TAB TABLET PO PRN (21:26)
[2019-04-07] MEDS: PIPERACILLIN/TAZOBACTAM 3.375 GM in IV NORMAL SALINE 50ML 50 ML IV SCH ×4 (00:09→17:53)
[2019-04-07 03:00] VITALS: BP 121/72
[2019-04-07 05:49] LABS: ALBUMIN 3.2 g/dL (3.4-5.0); ALBUMIN/GLOBULIN RATIO 0.9 (1.0-1.7); CALCIUM 8.2 mg/dL (8.5-10.1); CREATININE 0.8 mg/dL (0.6-1.0); GFR 79.9; POTASSIUM 3.5 mmol/L (3.5-5.1); TOTAL BILIRUBIN 1.3 mg/dL (0.2-1.0); TOTAL PROTEIN 6.9 g/dL (6.4-8.2)
[2019-04-07] MEDS: PANTOPRAZOLE 40 MG TABLET.DR. PO SCH (06:16)
[2019-04-07] MEDS: HYDROcodone/APAP 5/325MG 1 TAB TABLET PO PRN ×4 (06:17→21:58)
[2019-04-07 07:00] VITALS: BP 134/85
[2019-04-07] MEDS: CITALOPRAM 10 MG TABLET. PO SCH (08:10)
[2019-04-07] MEDS: ENOXAPARIN 40 MG/0.4 ML SYRINGE. SQ SCH (08:11)
--- NOTE | 2019-04-07 08:50 | PDOC ---
SURGICAL PROGRESS NOTE Subjective She states she's film pretty good minimal abdominal pain no nausea vomiting Vital Signs Vital Signs Date Time Temp Pulse Resp B/P (MAP) Pulse Ox O2 Delivery O2 Flow Rate FiO2 04/07/19 07:17 18 Room Air 04/07/19 07:00 98.5 66 134/85 (101) 94 98.5 04/06/19 09:25 8 I&O Intake and Output 04/07/19 07:00 Intake Total 2050 ml Balance 2050 ml Intake IV Total 2050 ml # Voids 5 # Bowel Movements 1 General: Alert, Oriented X3, Cooperative, mild distress Abdomen: Normal bowel sounds, Soft, No tenderness, Other (wounds clean dry and intact) Labs Laboratory Tests Test 04/05/19 10:05 04/05/19 18:10 04/06/19 05:15 04/07/19 04:55 White Blood Count 7.1 x10^3/uL (4.0-11.0) 5.8 x10^3/uL (4.0-11.0) Red Blood Count 4.98 x10^6/uL (3.50-5.40) 4.44 x10^6/uL (3.50-5.40) Hemoglobin 14.4 g/dL (12.0-15.5) 12.8 g/dL (12.0-15.5) Hematocrit 41.5 % (36.0-47.0) 37.4 % (36.0-47.0) Mean Corpuscular Volume 83 fL (79-100) 84 fL (79-100) Mean Corpuscular Hemoglobin 29 pg (25-35) 29 pg (25-35) Mean Corpuscular Hemoglobin Concent 35 g/dL (31-37) 34 g/dL (31-37) Red Cell Distribution Width 12.9 % (11.5-14.5) 13.0 % (11.5-14.5) Platelet Count 336 x10^3/uL (140-400) 264 x10^3/uL (140-400) Neutrophils (%) (Auto) 79 % (31-73) 73 % (31-73) Lymphocytes (%) (Auto) 13 % (24-48) 15 % (24-48) Monocytes (%) (Auto) 7 % (0-9) 7 % (0-9) Eosinophils (%) (Auto) 0 % (0-3) 4 % (0-3) Basophils (%) (Auto) 0 % (0-3) 1 % (0-3) Neutrophils # (Auto) 5.6 x10^3/uL (1.8-7.7) 4.2 x10^3/uL (1.8-7.7) Lymphocytes # (Auto) 0.9 x10^3/uL (1.0-4.8) 0.9 x10^3/uL (1.0-4.8) Monocytes # (Auto) 0.5 x10^3/uL (0.0-1.1) 0.4 x10^3/uL (0.0-1.1) Eosinophils # (Auto) 0.0 x10^3/uL (0.0-0.7) 0.2 x10^3/uL (0.0-0.7) Basophils # (Auto) 0.0 x10^3/uL (0.0-0.2) 0.0 x10^3/uL (0.0-0.2) Sodium Level 139 mmol/L (136-145) 141 mmol/L (136-145) 138 mmol/L (136-145) Potassium Level 4.0 mmol/L (3.5-5.1) 3.7 mmol/L (3.5-5.1) 3.5 mmol/L (3.5-5.1) Chloride Level 100 mmol/L (98-107) 105 mmol/L (98-107) 104 mmol/L (98-107) Carbon Dioxide Level 29 mmol/L (21-32) 26 mmol/L (21-32) 25 mmol/L (21-32) Anion Gap 10 (6-14) 10 (6-14) 9 (6-14) Blood Urea Nitrogen 7 mg/dL (7-20) 9 mg/dL (7-20) 7 mg/dL (7-20) Creatinine 0.8 mg/dL (0.6-1.0) 0.8 mg/dL (0.6-1.0) 0.8 mg/dL (0.6-1.0) Estimated GFR (Cockcroft-Gault) 79.9 79.9 79.9 BUN/Creatinine Ratio 9 (6-20) 11 (6-20) 9 (6-20) Glucose Level 126 mg/dL (70-99) 86 mg/dL (70-99) 98 mg/dL (70-99) Calcium Level 9.5 mg/dL (8.5-10.1) 8.4 mg/dL (8.5-10.1) 8.2 mg/dL (8.5-10.1) Total Bilirubin 4.3 mg/dL (0.2-1.0) 2.6 mg/dL (0.2-1.0) 1.3 mg/dL (0.2-1.0) Aspartate Amino Transf (AST/SGOT) 584 U/L (15-37) 359 U/L (15-37) 302 U/L (15-37) Alanine Aminotransferase (ALT/SGPT) 339 U/L (14-59) 396 U/L (14-59) 445 U/L (14-59) Alkaline Phosphatase 148 U/L (46-116) 148 U/L (46-116) 172 U/L (46-116) Total Protein 8.2 g/dL (6.4-8.2) 6.7 g/dL (6.4-8.2) 6.9 g/dL (6.4-8.2) Albumin 4.0 g/dL (3.4-5.0) 3.2 g/dL (3.4-5.0) 3.2 g/dL (3.4-5.0) Albumin/Globulin Ratio 1.0 (1.0-1.7) 0.9 (1.0-1.7) 0.9 (1.0-1.7) Urine Collection Type Unknown Urine Color Mirella Urine Clarity Clear Urine pH 6.0 Urine Specific [place] 1.015 Urine Protein 30 mg/dL (NEG-TRACE) Urine Glucose (UA) Negative mg/dL (NEG) Urine Ketones (Stick) 15 mg/dL (NEG) Urine Blood Negative (NEG) Urine Nitrite Negative (NEG) Urine Bilirubin Large (NEG) Urine Urobilinogen Dipstick 1.0 mg/dL (0.2 mg/dL) Urine Leukocyte Esterase Negative (NEG) Urine RBC Occ /HPF (0-2) Urine WBC 1-4 /HPF (0-4) Urine Squamous Epithelial Cells Mod /LPF Urine Bacteria 0 /HPF (0-FEW) Urine Mucus Slight /LPF Urine Test Negative (NEG) Laboratory Tests Test 04/07/19 04:55 Sodium Level 138 mmol/L (136-145) Potassium Level 3.5 mmol/L (3.5-5.1) Chloride Level 104 mmol/L (98-107) Carbon Dioxide Level 25 mmol/L (21-32) Anion Gap 9 (6-14) Blood Urea Nitrogen 7 mg/dL (7-20) Creatinine 0.8 mg/dL (0.6-1.0) Estimated GFR (Cockcroft-Gault) 79.9 BUN/Creatinine Ratio 9 (6-20) Glucose Level 98 mg/dL (70-99) Calcium Level 8.2 mg/dL (8.5-10.1) Total Bilirubin 1.3 mg/dL (0.2-1.0) Aspartate Amino Transf (AST/SGOT) 302 U/L (15-37) Alanine Aminotransferase (ALT/SGPT) 445 U/L (14-59) Alkaline Phosphatase 172 U/L (46-116) Total Protein 6.9 g/dL (6.4-8.2) Albumin 3.2 g/dL (3.4-5.0) Albumin/Globulin Ratio 0.9 (1.0-1.7) Assessment/Plan Status post laparoscopic cholecystectomy with intraoperative cholangio-gram showing bile duct occlusion although her liver enzymes and bilirubin have improved Dr. Esquivel with GI has been consult for potential ERCP UGO SALAZAR MD Apr 07, 2019 08:50
--- NOTE | 2019-04-07 10:44 | PDOC ---
PROGRESS NOTES Chief Complaint Chief Complaint impression Acute cholecystitis with choledocholithiasis acute abd pain, w n/v Leukocytosis, no SIRS, elevated LFTs, UTI GERD BMI 32 Dr. Tamayo with GI has been consult for // ERCP -- History of Present Illness History of Present Illness POD # 1 cholecystectomy w/ IOC //. Dr. Crandall, pain is better, doing well, cont pain control, IV fluids, clear liquids 27 min pt exam, chart review, > 50% of time spent with exam, chart review, pt care coordination Vitals Vitals Vital Signs Date Time Temp Pulse Resp B/P (MAP) Pulse Ox O2 Delivery O2 Flow Rate FiO2 04/07/19 07:17 18 Room Air 04/07/19 07:00 98.5 66 134/85 (101) 94 98.5 04/06/19 09:25 8 Physical Exam General: Alert, Oriented X3, Cooperative, No acute distress, mild distress Heart: Regular rate, Normal S1, Normal S2, No murmurs Lungs: Clear Abdomen: Normal bowel sounds, Soft, No tenderness, Other (wounds clean dry and intact) Extremities: No cyanosis Skin: No rashes, No breakdown Labs LABS Laboratory Tests Test 04/07/19 04:55 Sodium Level 138 mmol/L (136-145) Potassium Level 3.5 mmol/L (3.5-5.1) Chloride Level 104 mmol/L (98-107) Carbon Dioxide Level 25 mmol/L (21-32) Anion Gap 9 (6-14) Blood Urea Nitrogen 7 mg/dL (7-20) Creatinine 0.8 mg/dL (0.6-1.0) Estimated GFR (Cockcroft-Gault) 79.9 BUN/Creatinine Ratio 9 (6-20) Glucose Level 98 mg/dL (70-99) Calcium Level 8.2 mg/dL (8.5-10.1) Total Bilirubin 1.3 mg/dL (0.2-1.0) Aspartate Amino Transf (AST/SGOT) 302 U/L (15-37) Alanine Aminotransferase (ALT/SGPT) 445 U/L (14-59) Alkaline Phosphatase 172 U/L (46-116) Total Protein 6.9 g/dL (6.4-8.2) Albumin 3.2 g/dL (3.4-5.0) Albumin/Globulin Ratio 0.9 (1.0-1.7) Comment Review of Relevant I have reviewed the following items shelton (where applicable) has been applied. Labs Laboratory Tests Test 04/05/19 18:10 04/06/19 05:15 04/07/19 04:55 Urine Collection Type Unknown Urine Color Mirella Urine Clarity Clear Urine pH 6.0 Urine Specific [place] 1.015 Urine Protein 30 mg/dL (NEG-TRACE) Urine Glucose (UA) Negative mg/dL (NEG) Urine Ketones (Stick) 15 mg/dL (NEG) Urine Blood Negative (NEG) Urine Nitrite Negative (NEG) Urine Bilirubin Large (NEG) Urine Urobilinogen Dipstick 1.0 mg/dL (0.2 mg/dL) Urine Leukocyte Esterase Negative (NEG) Urine RBC Occ /HPF (0-2) Urine WBC 1-4 /HPF (0-4) Urine Squamous Epithelial Cells Mod /LPF Urine Bacteria 0 /HPF (0-FEW) Urine Mucus Slight /LPF Urine Test Negative (NEG) White Blood Count 5.8 x10^3/uL (4.0-11.0) Red Blood Count 4.44 x10^6/uL (3.50-5.40) Hemoglobin 12.8 g/dL (12.0-15.5) Hematocrit 37.4 % (36.0-47.0) Mean Corpuscular Volume 84 fL (79-100) Mean Corpuscular Hemoglobin 29 pg (25-35) Mean Corpuscular Hemoglobin Concent 34 g/dL (31-37) Red Cell Distribution Width 13.0 % (11.5-14.5) Platelet Count 264 x10^3/uL (140-400) Neutrophils (%) (Auto) 73 % (31-73) Lymphocytes (%) (Auto) 15 % (24-48) Monocytes (%) (Auto) 7 % (0-9) Eosinophils (%) (Auto) 4 % (0-3) Basophils (%) (Auto) 1 % (0-3) Neutrophils # (Auto) 4.2 x10^3/uL (1.8-7.7) Lymphocytes # (Auto) 0.9 x10^3/uL (1.0-4.8) Monocytes # (Auto) 0.4 x10^3/uL (0.0-1.1) Eosinophils # (Auto) 0.2 x10^3/uL (0.0-0.7) Basophils # (Auto) 0.0 x10^3/uL (0.0-0.2) Sodium Level 141 mmol/L (136-145) 138 mmol/L (136-145) Potassium Level 3.7 mmol/L (3.5-5.1) 3.5 mmol/L (3.5-5.1) Chloride Level 105 mmol/L (98-107) 104 mmol/L (98-107) Carbon Dioxide Level 26 mmol/L (21-32) 25 mmol/L (21-32) Anion Gap 10 (6-14) 9 (6-14) Blood Urea Nitrogen 9 mg/dL (7-20) 7 mg/dL (7-20) Creatinine 0.8 mg/dL (0.6-1.0) 0.8 mg/dL (0.6-1.0) Estimated GFR (Cockcroft-Gault) 79.9 79.9 BUN/Creatinine Ratio 11 (6-20) 9 (6-20) Glucose Level 86 mg/dL (70-99) 98 mg/dL (70-99) Calcium Level 8.4 mg/dL (8.5-10.1) 8.2 mg/dL (8.5-10.1) Total Bilirubin 2.6 mg/dL (0.2-1.0) 1.3 mg/dL (0.2-1.0) Aspartate Amino Transf (AST/SGOT) 359 U/L (15-37) 302 U/L (15-37) Alanine Aminotransferase (ALT/SGPT) 396 U/L (14-59) 445 U/L (14-59) Alkaline Phosphatase 148 U/L (46-116) 172 U/L (46-116) Total Protein 6.7 g/dL (6.4-8.2) 6.9 g/dL (6.4-8.2) Albumin 3.2 g/dL (3.4-5.0) 3.2 g/dL (3.4-5.0) Albumin/Globulin Ratio 0.9 (1.0-1.7) 0.9 (1.0-1.7) Laboratory Tests Test 04/07/19 04:55 Sodium Level 138 mmol/L (136-145) Potassium Level 3.5 mmol/L (3.5-5.1) Chloride Level 104 mmol/L (98-107) Carbon Dioxide Level 25 mmol/L (21-32) Anion Gap 9 (6-14) Blood Urea Nitrogen 7 mg/dL (7-20) Creatinine 0.8 mg/dL (0.6-1.0) Estimated GFR (Cockcroft-Gault) 79.9 BUN/Creatinine Ratio 9 (6-20) Glucose Level 98 mg/dL (70-99) Calcium Level 8.2 mg/dL (8.5-10.1) Total Bilirubin 1.3 mg/dL (0.2-1.0) Aspartate Amino Transf (AST/SGOT) 302 U/L (15-37) Alanine Aminotransferase (ALT/SGPT) 445 U/L (14-59) Alkaline Phosphatase 172 U/L (46-116) Total Protein 6.9 g/dL (6.4-8.2) Albumin 3.2 g/dL (3.4-5.0) Albumin/Globulin Ratio 0.9 (1.0-1.7) Microbiology 04/05/19 Blood Culture - Preliminary, Resulted NO GROWTH AFTER 2 DAYS Medications Current Medications Sodium Chloride (Normal Saline Flush) 3 ml QSHIFT PRN IV AFTER MEDS AND BLOOD DRAWS; Start 04/05/19 at 09:45 Sodium Chloride 1,000 ml @ 100 mls/hr Q10H IV Last administered on 04/06/19at 01:07; Start 04/05/19 at 09:33; Stop 04/06/19 at 17:17; Status DC Ondansetron HCl (Zofran) 4 mg PRN Q4HRS PRN IV NAUSEA/VOMITING; Start 04/05/19 at 09:45 Acetaminophen (Tylenol) 650 mg PRN Q4HRS PRN GT TEMP OVER 100.4F OR MILD PAIN; Start 04/05/19 at 09:45; Status Cancel Clonidine HCl (Catapres) 0.1 mg PRN Q6HRS PRN PO SBP>160 OR DBP>90; Start 04/05/19 at 09:45 Sodium Monofluorophosphate (Fleet Adult) 133 ml PRN DAILY PRN [place] CONSTIPATION; Start 04/05/19 at 09:45 Docusate Sodium (Colace) 100 mg PRN BID PRN PO CONSTIPATION Last administered on 04/06/19at 17:55; Start 04/05/19 at 09:45 Albuterol Sulfate (Ventolin Neb Soln) 2.5 mg PRN Q4HRS PRN NEB SHORTNESS OF BREATH; Start 04/05/19 at 09:45 Lorazepam (Ativan) 0.5 mg PRN Q4HRS PRN PO ANXIETY / AGITATION Last administer ed on 04/06/19at 21:26; Start 04/05/19 at 09:45 Enoxaparin Sodium (Lovenox 40mg Syringe) 40 mg DAILY SQ Last administered on 04/07/19at 08:11; Start 04/05/19 at 10:00 Piperacillin Sod/ Tazobactam Sod 3.375 gm/Sodium Chloride 50 ml @ 100 mls/hr Q6HRS IV Last administered on 04/07/19at 06:17; Start 04/05/19 at 10:00 Fentanyl Citrate (Fentanyl 2ml Vial) 25 mcg PRN Q5MIN PRN IV MILD PAIN 1-3; Start 04/06/19 at 07:00; Stop 04/06/19 at 14:15; Status DC Fentanyl Citrate (Fentanyl 2ml Vial) 50 mcg PRN Q5MIN PRN IV MODERATE TO SEVERE PAIN Last administered on 04/06/19at 10:00; Start 04/06/19 at 07:00; Stop 04/06/19 at 14:15; Status DC Morphine Sulfate (Morphine Sulfate) 1 mg PRN Q10MIN PRN IV SEVERE PAIN 7-10; Start 04/06/19 at 07:00; Stop 04/06/19 at 14:15; Status DC Ringer's Solution 1,000 ml @ 30 mls/hr Q24H IV ; Start 04/06/19 at 07:00; Stop 04/06/19 at 17:17; Status DC Hydromorphone HCl (Dilaudid) 0.5 mg PRN Q10MIN PRN IV SEV PAIN, Second choice; Start 04/06/19 at 07:00; Stop 04/06/19 at 14:15; Status DC Prochlorperazine Edisylate (Compazine) 5 mg PACU PRN PRN IV NAUSEA, MRX1; Start 04/06/19 at 07:00; Stop 04/06/19 at 14:15; Status DC Pantoprazole Sodium (PROTONIX VIAL for IV PUSH) 40 mg DAILYAC IVP Last administered on 04/05/19at 11:12; Start 04/05/19 at 12:00; Stop 04/06/19 at 10:51; Status DC Hydromorphone HCl (Dilaudid) 1 mg PRN Q4HRS PRN IV SEVERE PAIN 7-10 Last administered on 04/06/19at 20:06; Start 04/05/19 at 12:00 Dexamethasone Sodium Phosphate (Decadron) 4 mg STK-MED ONCE .ROUTE ; Start 04/06 at 07:11; Stop 04/06/19 at 07:12; Status DC Propofol 20 ml @ As Directed STK-MED ONCE IV ; Start 04/06/19 at 07:11; Stop at 07:12; Status DC Lidocaine HCl (Lidocaine Pf 2% Vial) 5 ml STK-MED ONCE .ROUTE ; Start 04/06/19 at 07:11; Stop 04/06/19 at 07:12; Status DC Ondansetron HCl (Zofran) 4 mg STK-MED ONCE .ROUTE ; Start 04/06/19 at 07:11; Stop 04/06/19 at 07:12; Status DC Rocuronium [place] (Zemuron) 50 mg STK-MED ONCE .ROUTE ; Start 04/06/19 at 07:11; Stop 04/06/19 at 07:12; Status DC Iohexol (Omnipaque 300 Mg/ml) 50 ml STK-MED ONCE .ROUTE Last administered on 04/06/19at 08:13; Start 04/06/19 at 06:19; Stop 04/06/19 at 07:19; Status DC Cellulose (Surgicel Hemostat 4x8) 1 each STK-MED ONCE .ROUTE ; Start 04/06/19 at 06:19; Stop 04/06/19 at 07:19; Status DC Bupivacaine HCl/ Epinephrine Bitart (Sensorcaine-Epi 0.25%-1:017862 Mpf) 30 ml STK-MED ONCE .ROUTE Last administered on 04/06/19at 08:13; Start 7/20/19 at 06:19; Stop 04/06/19 at 07:20; Status DC Fentanyl Citrate (Fentanyl 2ml Vial) 100 mcg STK-MED ONCE .ROUTE ; Start 04/06/19 at 07:42; Stop 04/06/19 at 07:43; Status DC Midazolam HCl (Versed) 2 mg STK-MED ONCE .ROUTE ; Start 04/06/19 at 07:42; Stop 04/06/19 at 07:43; Status DC Ketorolac Tromethamine (Toradol For Or Only) 30 mg STK-MED ONCE INJ ; Start 04/06/19 at 07:42; Stop 04/06/19 at 07:43; Status DC Sevoflurane (Ultane) 60 ml STK-MED ONCE IH ; Start 04/06/19 at 07:42; Stop 04/06/19 at 07:43; Status DC Neostigmine Methylsulfate (Bloxiverz) 10 mg STK-MED ONCE .ROUTE ; Start 04/06/19 at 08:22; Stop 04/06/19 at 08:23; Status DC Glycopyrrolate (Robinul) 1 mg STK-MED ONCE .ROUTE ; Start 04/06/19 at 08:23; Stop 04/06/19 at 08:24; Status DC Glucagon (Glucagen) 1 mg STK-MED ONCE .ROUTE ; Start 04/06/19 at 07:35; Stop 04/06/19 at 08:36; Status DC Rocuronium [place] (Zemuron) 50 mg STK-MED ONCE .ROUTE ; Start 04/06/19 at 08:43; Stop 04/06/19 at 08:44; Status DC Citalopram Hydrobromide (CeleXA) 10 mg DAILY PO Last administered on 04/07/19at 08:10; Start 04/06/19 at 11:00 Pantoprazole Sodium (Protonix) 40 mg DAILYAC PO Last administered on 04/07/19at 06:16; Start 04/07/19 at 07:30 Acetaminophen (Tylenol) 650 mg PRN Q6HRS PRN PO MILD TO MODERATE PAIN Last administered on 04/06/19at 14:08; Start 04/06/19 at 14:00 Acetaminophen/ Hydrocodone Bitart (Lortab 5/325) 1 tab PRN Q4HRS PRN PO MODERATE TO SEVERE PAIN Last administered on 04/07/19at 06:17; Start 04/06/19 at 20:30 Active Scripts Active Reported Prilosec Otc (Omeprazole Magnesium) 20 Mg Tablet. 1 Tab PO DAILY Lexapro (Escitalopram Oxalate) 5 Mg Tablet 1 Tab PO DAILY Vitals/I & O Vital Sign - Last 24 Hours 04/06/19 04/06/19 04/06/19 04/06/19 11:00 11:15 11:30 11:45 Temp 97.9 97.9 97.9 97.9 97.9 97.9 97.9 97.9 Pulse 69 66 66 65 Resp 12 12 12 12 B/P (MAP) 106/55 (72) 104/49 (67) 91/45 (60) 95/46 (62) Pulse Ox 94 97 98 99 O2 Delivery Room Air Room Air Room Air Room Air 04/06/19 04/06/19 04/06/19 04/06/19 12:15 12:45 14:20 19:00 Temp 98.6 98.6 Pulse 65 67 65 72 Resp 12 12 12 18 B/P (MAP) 91/45 (60) 86/46 (59) 117/47 (70) 125/66 (85) Pulse Ox 99 98 98 93 O2 Delivery Room Air Room Air Room Air Room Air 04/06/19 04/06/19 04/06/19 04/06/19 20:06 20:30 20:36 21:26 Resp 20 18 16 O2 Delivery Room Air Room Air Room Air Room Air 04/06/19 04/07/19 04/07/19 04/07/19 23:00 03:00 06:17 07:00 Temp 97.5 98.7 98.5 97.5 98.7 98.5 Pulse 70 66 66 Resp 18 18 18 18 B/P (MAP) 124/71 (88) 121/72 (88) 134/85 (101) Pulse Ox 94 95 94 O2 Delivery Room Air Room Air Room Air Room Air 04/07/19 07:17 Resp 18 O2 Delivery Room Air Intake and Output 04/06/19 04/06/19 04/07/19 15:00 23:00 07:00 Intake Total 900 ml 1150 ml Balance 900 ml 1150 ml UGO EDEN MD Apr 07, 2019 10:44
[2019-04-07 11:00] VITALS: BP 109/62
--- NOTE | 2019-04-07 12:50 | PDOC ---
G I PROGRESS NOTE Reason for Follow-up Biliary colic Subjective S/p lap khris Physical Exam Lungs clear CV S1 S2 ABD +BS, soft, incisions intact Review of Relevant I have reviewed the following items shelton (where applicable) has been applied. Labs Laboratory Tests Test 04/05/19 18:10 04/06/19 05:15 04/07/19 04:55 Urine Collection Type Unknown Urine Color Mirella Urine Clarity Clear Urine pH 6.0 Urine Specific [place] 1.015 Urine Protein 30 mg/dL (NEG-TRACE) Urine Glucose (UA) Negative mg/dL (NEG) Urine Ketones (Stick) 15 mg/dL (NEG) Urine Blood Negative (NEG) Urine Nitrite Negative (NEG) Urine Bilirubin Large (NEG) Urine Urobilinogen Dipstick 1.0 mg/dL (0.2 mg/dL) Urine Leukocyte Esterase Negative (NEG) Urine RBC Occ /HPF (0-2) Urine WBC 1-4 /HPF (0-4) Urine Squamous Epithelial Cells Mod /LPF Urine Bacteria 0 /HPF (0-FEW) Urine Mucus Slight /LPF Urine Test Negative (NEG) White Blood Count 5.8 x10^3/uL (4.0-11.0) Red Blood Count 4.44 x10^6/uL (3.50-5.40) Hemoglobin 12.8 g/dL (12.0-15.5) Hematocrit 37.4 % (36.0-47.0) Mean Corpuscular Volume 84 fL (79-100) Mean Corpuscular Hemoglobin 29 pg (25-35) Mean Corpuscular Hemoglobin Concent 34 g/dL (31-37) Red Cell Distribution Width 13.0 % (11.5-14.5) Platelet Count 264 x10^3/uL (140-400) Neutrophils (%) (Auto) 73 % (31-73) Lymphocytes (%) (Auto) 15 % (24-48) Monocytes (%) (Auto) 7 % (0-9) Eosinophils (%) (Auto) 4 % (0-3) Basophils (%) (Auto) 1 % (0-3) Neutrophils # (Auto) 4.2 x10^3/uL (1.8-7.7) Lymphocytes # (Auto) 0.9 x10^3/uL (1.0-4.8) Monocytes # (Auto) 0.4 x10^3/uL (0.0-1.1) Eosinophils # (Auto) 0.2 x10^3/uL (0.0-0.7) Basophils # (Auto) 0.0 x10^3/uL (0.0-0.2) Sodium Level 141 mmol/L (136-145) 138 mmol/L (136-145) Potassium Level 3.7 mmol/L (3.5-5.1) 3.5 mmol/L (3.5-5.1) Chloride Level 105 mmol/L (98-107) 104 mmol/L (98-107) Carbon Dioxide Level 26 mmol/L (21-32) 25 mmol/L (21-32) Anion Gap 10 (6-14) 9 (6-14) Blood Urea Nitrogen 9 mg/dL (7-20) 7 mg/dL (7-20) Creatinine 0.8 mg/dL (0.6-1.0) 0.8 mg/dL (0.6-1.0) Estimated GFR (Cockcroft-Gault) 79.9 79.9 BUN/Creatinine Ratio 11 (6-20) 9 (6-20) Glucose Level 86 mg/dL (70-99) 98 mg/dL (70-99) Calcium Level 8.4 mg/dL (8.5-10.1) 8.2 mg/dL (8.5-10.1) Total Bilirubin 2.6 mg/dL (0.2-1.0) 1.3 mg/dL (0.2-1.0) Aspartate Amino Transf (AST/SGOT) 359 U/L (15-37) 302 U/L (15-37) Alanine Aminotransferase (ALT/SGPT) 396 U/L (14-59) 445 U/L (14-59) Alkaline Phosphatase 148 U/L (46-116) 172 U/L (46-116) Total Protein 6.7 g/dL (6.4-8.2) 6.9 g/dL (6.4-8.2) Albumin 3.2 g/dL (3.4-5.0) 3.2 g/dL (3.4-5.0) Albumin/Globulin Ratio 0.9 (1.0-1.7) 0.9 (1.0-1.7) Laboratory Tests Test 04/07/19 04:55 Sodium Level 138 mmol/L (136-145) Potassium Level 3.5 mmol/L (3.5-5.1) Chloride Level 104 mmol/L (98-107) Carbon Dioxide Level 25 mmol/L (21-32) Anion Gap 9 (6-14) Blood Urea Nitrogen 7 mg/dL (7-20) Creatinine 0.8 mg/dL (0.6-1.0) Estimated GFR (Cockcroft-Gault) 79.9 BUN/Creatinine Ratio 9 (6-20) Glucose Level 98 mg/dL (70-99) Calcium Level 8.2 mg/dL (8.5-10.1) Total Bilirubin 1.3 mg/dL (0.2-1.0) Aspartate Amino Transf (AST/SGOT) 302 U/L (15-37) Alanine Aminotransferase (ALT/SGPT) 445 U/L (14-59) Alkaline Phosphatase 172 U/L (46-116) Total Protein 6.9 g/dL (6.4-8.2) Albumin 3.2 g/dL (3.4-5.0) Albumin/Globulin Ratio 0.9 (1.0-1.7) Microbiology 04/05/19 Blood Culture - Preliminary, Resulted NO GROWTH AFTER 2 DAYS Medications Current Medications Sodium Chloride (Normal Saline Flush) 3 ml QSHIFT PRN IV AFTER MEDS AND BLOOD DRAWS; Start 04/05/19 at 09:45 Sodium Chloride 1,000 ml @ 100 mls/hr Q10H IV Last administered on 04/06/19at 01:07; Start 04/05/19 at 09:33; Stop 04/06/19 at 17:17; Status DC Ondansetron HCl (Zofran) 4 mg PRN Q4HRS PRN IV NAUSEA/VOMITING; Start 04/05/19 at 09:45 Acetaminophen (Tylenol) 650 mg PRN Q4HRS PRN GT TEMP OVER 100.4F OR MILD PAIN; Start 04/05/19 at 09:45; Status Cancel Clonidine HCl (Catapres) 0.1 mg PRN Q6HRS PRN PO SBP>160 OR DBP>90; Start 04/05/19 at 09:45 Sodium Monofluorophosphate (Fleet Adult) 133 ml PRN DAILY PRN ID CONSTIPATION; Start 04/05/19 at 09:45 Docusate Sodium (Colace) 100 mg PRN BID PRN PO CONSTIPATION Last administered on 04/06/19at 17:55; Start 04/05/19 at 09:45 Albuterol Sulfate (Ventolin Neb Soln) 2.5 mg PRN Q4HRS PRN NEB SHORTNESS OF BREATH; Start 04/05/19 at 09:45 Lorazepam (Ativan) 0.5 mg PRN Q4HRS PRN PO ANXIETY / AGITATION Last administered on 04/06/19at 21:26; Start 04/05/19 at 09:45 Enoxaparin Sodium (Lovenox 40mg Syringe) 40 mg DAILY SQ Last administered on 04/07/19at 08:11; Start 04/05/19 at 10:00 Piperacillin Sod/ Tazobactam Sod 3.375 gm/Sodium Chloride 50 ml @ 100 mls/hr Q6HRS IV Last administered on 04/07/19at 06:17; Start 04/05/19 at 10:00 Fentanyl Citrate (Fentanyl 2ml Vial) 25 mcg PRN Q5MIN PRN IV MILD PAIN 1-3; Start 04/06/19 at 07:00; Stop 04/06/19 at 14:15; Status DC Fentanyl Citrate (Fentanyl 2ml Vial) 50 mcg PRN Q5MIN PRN IV MODERATE TO SEVERE PAIN Last administered on 04/06/19at 10:00; Start 04/06/19 at 07:00; Stop 04/06/19 at 14:15; Status DC Morphine Sulfate (Morphine Sulfate) 1 mg PRN Q10MIN PRN IV SEVERE PAIN 7-10; Start 04/06/19 at 07:00; Stop 04/06/19 at 14:15; Status DC Ringer's Solution 1,000 ml @ 30 mls/hr Q24H IV ; Start 04/06/19 at 07:00; Stop 04/06/19 at 17:17; Status DC Hydromorphone HCl (Dilaudid) 0.5 mg PRN Q10MIN PRN IV SEV PAIN, Second choice; Start 04/06/19 at 07:00; Stop 04/06/19 at 14:15; Status DC Prochlorperazine Edisylate (Compazine) 5 mg PACU PRN PRN IV NAUSEA, MRX1; Start 04/06/19 at 07:00; Stop 04/06/19 at 14:15; Status DC Pantoprazole Sodium (PROTONIX VIAL for IV PUSH) 40 mg DAILYAC IVP Last administered on 04/05/19at 11:12; Start 04/05/19 at 12:00; Stop 04/06/19 at 10:51; Status DC Hydromorphone HCl (Dilaudid) 1 mg PRN Q4HRS PRN IV SEVERE PAIN 7-10 Last administered on 04/06/19at 20:06; Start 04/05/19 at 12:00 Dexamethasone Sodium Phosphate (Decadron) 4 mg STK-MED ONCE .ROUTE ; Start 04/06/19 at 07:11; Stop 04/06/19 at 07:12; Status DC Propofol 20 ml @ As Directed STK-MED ONCE IV ; Start 04/06/19 at 07:11; Stop 04/06/19 at 07:12; Status DC Lidocaine HCl (Lidocaine Pf 2% Vial) 5 ml STK-MED ONCE .ROUTE ; Start 04/06/19 at 07:11; Stop 04/06/19 at 07:12; Status DC Ondansetron HCl (Zofran) 4 mg STK-MED ONCE .ROUTE ; Start 04/06/19 at 07:11; Stop 04/06/19 at 07:12; Status DC Rocuronium [place] (Zemuron) 50 mg STK-MED ONCE .ROUTE ; Start 04/06/19 at 07:11; Stop 04/06/19 at 07:12; Status DC Iohexol (Omnipaque 300 Mg/ml) 50 ml STK-MED ONCE .ROUTE Last administered on 04/06/19at 08:13; Start 04/06/19 at 06:19; Stop 04/06/19 at 07:19; Status DC Cellulose (Surgicel Hemostat 4x8) 1 each STK-MED ONCE .ROUTE ; Start 04/06/19 at 06:19; Stop 04/06/19 at 07:19; Status DC Bupivacaine HCl/ Epinephrine Bitart (Sensorcaine-Epi 0.25%-1:982905 Mpf) 30 ml STK-MED ONCE .ROUTE Last administered on 04/06/19at 08:13; Start 04/06/19 at 06:19; Stop 04/06/19 at 07:20; Status DC Fentanyl Citrate (Fentanyl 2ml Vial) 100 mcg STK-MED ONCE .ROUTE ; Start 04/06/19 at 07:42; Stop 04/06/19 at 07:43; Status DC Midazolam HCl (Versed) 2 mg STK-MED ONCE .ROUTE ; Start 04/06/19 at 07:42; Stop 04/06/19 at 07:43; Status DC Ketorolac Tromethamine (Toradol For Or Only) 30 mg STK-MED ONCE INJ ; Start 04/06/19 at 07:42; Stop 04/06/19 at 07:43; Status DC Sevoflurane (Ultane) 60 ml STK-MED ONCE IH ; Start 04/06/19 at 07:42; Stop 04/06/19 at 07:43; Status DC Neostigmine Methylsulfate (Bloxiverz) 10 mg STK-MED ONCE .ROUTE ; Start 04/06/19 at 08:22; Stop 04/06/19 at 08:23; Status DC Glycopyrrolate (Robinul) 1 mg STK-MED ONCE .ROUTE ; Start 04/06/19 at 08:23; Stop 04/06/19 at 08:24; Status DC Glucagon (Glucagen) 1 mg STK-MED ONCE .ROUTE ; Start 04/06/19 at 07:35; Stop 04/06/19 at 08:36; Status DC Rocuronium [place] (Zemuron) 50 mg STK-MED ONCE .ROUTE ; Start 04/06/19 at 08:43; Stop 04/06/19 at 08:44; Status DC Citalopram Hydrobromide (CeleXA) 10 mg DAILY PO Last administered on 04/07/19at 08:10; Start 04/06/19 at 11:00 Pantoprazole Sodium (Protonix) 40 mg DAILYAC PO Last administered on 04/07/19at 06:16; Start 04/07/19 at 07:30 Acetaminophen (Tylenol) 650 mg PRN Q6HRS PRN PO MILD TO MODERATE PAIN Last administered on 04/06/19at 14:08; Start 04/06/19 at 14:00 Acetaminophen/ Hydrocodone Bitart (Lortab 5/325) 1 tab PRN Q4HRS PRN PO MODERATE TO SEVERE PAIN Last administered on 04/07/19at 06:17; Start 04/06/19 at 20:30 Active Scripts Active Reported Prilosec Otc (Omeprazole Magnesium) 20 Mg Tablet. 1 Tab PO DAILY Lexapro (Escitalopram Oxalate) 5 Mg Tablet 1 Tab PO DAILY Vitals/I & O Vital Sign - Last 24 Hours 04/06/19 04/06/19 04/06/19 04/06/19 14:20 19:00 20:06 20:30 Temp 98.6 98.6 Pulse 65 72 Resp 12 18 20 B/P (MAP) 117/47 (70) 125/66 (85) Pulse Ox 98 93 O2 Delivery Room Air Room Air Room Air Room Air 04/06/19 04/06/19 04/06/19 04/07/19 20:36 21:26 23:00 03:00 Temp 97.5 98.7 97.5 98.7 Pulse 70 66 Resp 18 16 18 18 B/P (MAP) 124/71 (88) 121/72 (88) Pulse Ox 94 95 O2 Delivery Room Air Room Air Room Air Room Air 04/07/19 04/07/19 04/07/19 04/07/19 06:17 07:00 07:17 11:00 Temp 98.5 98.4 98.5 98.4 Pulse 66 75 Resp 18 18 18 18 B/P (MAP) 134/85 (101) 109/62 (78) Pulse Ox 94 94 O2 Delivery Room Air Room Air Room Air Room Air Intake and Output 04/06/19 04/06/19 04/07/19 15:00 23:00 07:00 Intake Total 900 ml 1150 ml Balance 900 ml 1150 ml Problem List S/p lap khris- with abnl IOC andpossible retained stone, ERCp with possible extraction tomorrow with Dr Browning. Risks and benefits discussed with patient HANNAH BRUNO MD Apr 07, 2019 12:50
[2019-04-07 14:34] VITALS: BP 141/85
[2019-04-07] MEDS: LORazepam 0.5 MG TABLET PO PRN ×2 (17:53→21:57)
[2019-04-07 19:00] VITALS: BP 113/74
[2019-04-07] MEDS ORDERED: SIMETHICONE 80 MG TAB.CHEW PO PRN (19:45)
[2019-04-07] MEDS: POLYETHYLENE GLYCOL 3350 17 GM PACKET. PO SCH (21:57)
[2019-04-07 23:00] VITALS: BP 121/78
[2019-04-08] VITALS (10 sets, daily range): BP systolic 120–143; BP diastolic 67–82
[2019-04-08] MEDS: PIPERACILLIN/TAZOBACTAM 3.375 GM in IV NORMAL SALINE 50ML 50 ML IV SCH ×4 (00:22→18:47)
[2019-04-08 07:09] LABS: BASO % 1 % (0-3); EOS # 0.1 x10^3/uL (0.0-0.7); EOS % 2 % (0-3); HEMATOCRIT 36.2 % (36.0-47.0); HEMOGLOBIN 12.5 g/dL (12.0-15.5); LYMPH % 16 % (24-48); MEAN CORPUSCULAR HEMOGLOBIN 29 pg (25-35); MEAN CORPUSCULAR HGB CONC 35 g/dL (31-37); MEAN CORPUSCULAR VOLUME 85 fL (79-100); MONO # 0.5 x10^3/uL (0.0-1.1); MONO % 7 % (0-9); NEUT # 4.6 x10^3/uL (1.8-7.7); NEUT % 73 % (31-73); PLATELET COUNT 307 x10^3/uL (140-400); RED BLOOD COUNT 4.29 x10^6/uL (3.50-5.40); RED CELL DISTRIBUTION WIDTH 13.3 % (11.5-14.5); WHITE BLOOD COUNT 6.3 x10^3/uL (4.0-11.0)
[2019-04-08 07:21] LABS: ALBUMIN 3.1 g/dL (3.4-5.0); ALBUMIN/GLOBULIN RATIO 0.8 (1.0-1.7); CALCIUM 8.4 mg/dL (8.5-10.1); CREATININE 0.7 mg/dL (0.6-1.0); GFR 93.2; POTASSIUM 3.4 mmol/L (3.5-5.1); TOTAL BILIRUBIN 2.5 mg/dL (0.2-1.0); TOTAL PROTEIN 6.8 g/dL (6.4-8.2)
[2019-04-08] MEDS: PANTOPRAZOLE 40 MG TABLET.DR. PO SCH (07:29)
[2019-04-08] MEDS: ENOXAPARIN 40 MG/0.4 ML SYRINGE. SQ SCH (07:29)
--- NOTE | 2019-04-08 07:29 | NUR ---
MEDICATION ADMINISTRATION: Held Lovenox d/t ERCP scheduled for 1329 today
--- NOTE | 2019-04-08 07:52 | PDOC ---
PROGRESS NOTES Chief Complaint Chief Complaint Acute cholecystitis with choledocholithiasis Acute abd pain, w n/v Leukocytosis, no SIRS, Elevated LFTs, UTI GERD BMI 32 History of Present Illness History of Present Illness POD # 2 cholecystectomy w/ IOC //. Dr. Crandall pain is better, doing well, cont pain control, IV fluids, clear liquids Plan to consider ERCP with Dr. Browning today this afternoon Vitals Vitals Vital Signs Date Time Temp Pulse Resp B/P (MAP) Pulse Ox O2 Delivery O2 Flow Rate FiO2 04/08/19 07:38 95 Room Air 04/08/19 03:00 98.1 76 18 143/79 (100) 98.1 Physical Exam General: Alert, Oriented X3, Cooperative, No acute distress, mild distress Heart: Regular rate, Normal S1, Normal S2, No murmurs Lungs: Clear Abdomen: Normal bowel sounds, Soft, No tenderness, Other (wounds clean dry and intact) Extremities: No cyanosis Skin: No rashes, No breakdown Labs LABS Laboratory Tests Test 04/08/19 05:25 White Blood Count 6.3 x10^3/uL (4.0-11.0) Red Blood Count 4.29 x10^6/uL (3.50-5.40) Hemoglobin 12.5 g/dL (12.0-15.5) Hematocrit 36.2 % (36.0-47.0) Mean Corpuscular Volume 85 fL (79-100) Mean Corpuscular Hemoglobin 29 pg (25-35) Mean Corpuscular Hemoglobin Concent 35 g/dL (31-37) Red Cell Distribution Width 13.3 % (11.5-14.5) Platelet Count 307 x10^3/uL (140-400) Neutrophils (%) (Auto) 73 % (31-73) Lymphocytes (%) (Auto) 16 % (24-48) Monocytes (%) (Auto) 7 % (0-9) Eosinophils (%) (Auto) 2 % (0-3) Basophils (%) (Auto) 1 % (0-3) Neutrophils # (Auto) 4.6 x10^3/uL (1.8-7.7) Lymphocytes # (Auto) 1.0 x10^3/uL (1.0-4.8) Monocytes # (Auto) 0.5 x10^3/uL (0.0-1.1) Eosinophils # (Auto) 0.1 x10^3/uL (0.0-0.7) Basophils # (Auto) 0.0 x10^3/uL (0.0-0.2) Sodium Level 137 mmol/L (136-145) Potassium Level 3.4 mmol/L (3.5-5.1) Chloride Level 103 mmol/L (98-107) Carbon Dioxide Level 25 mmol/L (21-32) Anion Gap 9 (6-14) Blood Urea Nitrogen 4 mg/dL (7-20) Creatinine 0.7 mg/dL (0.6-1.0) Estimated GFR (Cockcroft-Gault) 93.2 BUN/Creatinine Ratio 6 (6-20) Glucose Level 97 mg/dL (70-99) Calcium Level 8.4 mg/dL (8.5-10.1) Total Bilirubin 2.5 mg/dL (0.2-1.0) Aspartate Amino Transf (AST/SGOT) 271 U/L (15-37) Alanine Aminotransferase (ALT/SGPT) 470 U/L (14-59) Alkaline Phosphatase 193 U/L (46-116) Total Protein 6.8 g/dL (6.4-8.2) Albumin 3.1 g/dL (3.4-5.0) Albumin/Globulin Ratio 0.8 (1.0-1.7) Comment Review of Relevant I have reviewed the following items shelton (where applicable) has been applied. Labs Laboratory Tests Test 04/07/19 04:55 04/08/19 05:25 Sodium Level 138 mmol/L (136-145) 137 mmol/L (136-145) Potassium Level 3.5 mmol/L (3.5-5.1) 3.4 mmol/L (3.5-5.1) Chloride Level 104 mmol/L (98-107) 103 mmol/L (98-107) Carbon Dioxide Level 25 mmol/L (21-32) 25 mmol/L (21-32) Anion Gap 9 (6-14) 9 (6-14) Blood Urea Nitrogen 7 mg/dL (7-20) 4 mg/dL (7-20) Creatinine 0.8 mg/dL (0.6-1.0) 0.7 mg/dL (0.6-1.0) Estimated GFR (Cockcroft-Gault) 79.9 93.2 BUN/Creatinine Ratio 9 (6-20) 6 (6-20) Glucose Level 98 mg/dL (70-99) 97 mg/dL (70-99) Calcium Level 8.2 mg/dL (8.5-10.1) 8.4 mg/dL (8.5-10.1) Total Bilirubin 1.3 mg/dL (0.2-1.0) 2.5 mg/dL (0.2-1.0) Aspartate Amino Transf (AST/SGOT) 302 U/L (15-37) 271 U/L (15-37) Alanine Aminotransferase (ALT/SGPT) 445 U/L (14-59) 470 U/L (14-59) Alkaline Phosphatase 172 U/L (46-116) 193 U/L (46-116) Total Protein 6.9 g/dL (6.4-8.2) 6.8 g/dL (6.4-8.2) Albumin 3.2 g/dL (3.4-5.0) 3.1 g/dL (3.4-5.0) Albumin/Globulin Ratio 0.9 (1.0-1.7) 0.8 (1.0-1.7) White Blood Count 6.3 x10^3/uL (4.0-11.0) Red Blood Count 4.29 x10^6/uL (3.50-5.40) Hemoglobin 12.5 g/dL (12.0-15.5) Hematocrit 36.2 % (36.0-47.0) Mean Corpuscular Volume 85 fL (79-100) Mean Corpuscular Hemoglobin 29 pg (25-35) Mean Corpuscular Hemoglobin Concent 35 g/dL (31-37) Red Cell Distribution Width 13.3 % (11.5-14.5) Platelet Count 307 x10^3/uL (140-400) Neutrophils (%) (Auto) 73 % (31-73) Lymphocytes (%) (Auto) 16 % (24-48) Monocytes (%) (Auto) 7 % (0-9) Eosinophils (%) (Auto) 2 % (0-3) Basophils (%) (Auto) 1 % (0-3) Neutrophils # (Auto) 4.6 x10^3/uL (1.8-7.7) Lymphocytes # (Auto) 1.0 x10^3/uL (1.0-4.8) Monocytes # (Auto) 0.5 x10^3/uL (0.0-1.1) Eosinophils # (Auto) 0.1 x10^3/uL (0.0-0.7) Basophils # (Auto) 0.0 x10^3/uL (0.0-0.2) Laboratory Tests Test 04/08/19 05:25 White Blood Count 6.3 x10^3/uL (4.0-11.0) Red Blood Count 4.29 x10^6/uL (3.50-5.40) Hemoglobin 12.5 g/dL (12.0-15.5) Hematocrit 36.2 % (36.0-47.0) Mean Corpuscular Volume 85 fL (79-100) Mean Corpuscular Hemoglobin 29 pg (25-35) Mean Corpuscular Hemoglobin Concent 35 g/dL (31-37) Red Cell Distribution Width 13.3 % (11.5-14.5) Platelet Count 307 x10^3/uL (140-400) Neutrophils (%) (Auto) 73 % (31-73) Lymphocytes (%) (Auto) 16 % (24-48) Monocytes (%) (Auto) 7 % (0-9) Eosinophils (%) (Auto) 2 % (0-3) Basophils (%) (Auto) 1 % (0-3) Neutrophils # (Auto) 4.6 x10^3/uL (1.8-7.7) Lymphocytes # (Auto) 1.0 x10^3/uL (1.0-4.8) Monocytes # (Auto) 0.5 x10^3/uL (0.0-1.1) Eosinophils # (Auto) 0.1 x10^3/uL (0.0-0.7) Basophils # (Auto) 0.0 x10^3/uL (0.0-0.2) Sodium Level 137 mmol/L (136-145) Potassium Level 3.4 mmol/L (3.5-5.1) Chloride Level 103 mmol/L (98-107) Carbon Dioxide Level 25 mmol/L (21-32) Anion Gap 9 (6-14) Blood Urea Nitrogen 4 mg/dL (7-20) Creatinine 0.7 mg/dL (0.6-1.0) Estimated GFR (Cockcroft-Gault) 93.2 BUN/Creatinine Ratio 6 (6-20) Glucose Level 97 mg/dL (70-99) Calcium Level 8.4 mg/dL (8.5-10.1) Total Bilirubin 2.5 mg/dL (0.2-1.0) Aspartate Amino Transf (AST/SGOT) 271 U/L (15-37) Alanine Aminotransferase (ALT/SGPT) 470 U/L (14-59) Alkaline Phosphatase 193 U/L (46-116) Total Protein 6.8 g/dL (6.4-8.2) Albumin 3.1 g/dL (3.4-5.0) Albumin/Globulin Ratio 0.8 (1.0-1.7) Microbiology 04/05/19 Blood Culture - Preliminary, Resulted NO GROWTH AFTER 2 DAYS Medications Current Medications Sodium Chloride (Normal Saline Flush) 3 ml QSHIFT PRN IV AFTER MEDS AND BLOOD DRAWS; Start 04/05/19 at 09:45 Sodium Chloride 1,000 ml @ 100 mls/hr Q10H IV Last administered on 04/06/19at 01:07; Start 04/05/19 at 09:33; Stop 04/06/19 at 17:17; Status DC Ondansetron HCl (Zofran) 4 mg PRN Q4HRS PRN IV NAUSEA/VOMITING; Start 04/05/19 at 09:45 Acetaminophen (Tylenol) 650 mg PRN Q4HRS PRN GT TEMP OVER 100.4F OR MILD PAIN; Start 04/05/19 at 09:45; Status Cancel Clonidine HCl (Catapres) 0.1 mg PRN Q6HRS PRN PO SBP>160 OR DBP>90; Start 04/05/19 at 09:45 Sodium Monofluorophosphate (Fleet Adult) 133 ml PRN DAILY PRN FL CONSTIPATION; Start 04/05/19 at 09:45 Docusate Sodium (Colace) 100 mg PRN BID PRN PO CONSTIPATION Last administered on 04/06/19at 17:55; Start 04/05/19 at 09:45 Albuterol Sulfate (Ventolin Neb Soln) 2.5 mg PRN Q4HRS PRN NEB SHORTNESS OF BREATH; Start 04/05/19 at 09:45 Lorazepam (Ativan) 0.5 mg PRN Q4HRS PRN PO ANXIETY / AGITATION Last administered on 04/07/19at 21:57; Start 04/05/19 at 09:45 Enoxaparin Sodium (Lovenox 40mg Syringe) 40 mg DAILY SQ Last administered on 04/07/19at 08:11; Start 04/05/19 at 10:00 Piperacillin Sod/ Tazobactam Sod 3.375 gm/Sodium Chloride 50 ml @ 100 mls/hr Q6HRS IV Last administered on 04/08/19at 06:32; Start 04/05/19 at 10:00 Fentanyl Citrate (Fentanyl 2ml Vial) 25 mcg PRN Q5MIN PRN IV MILD PAIN 1-3; Start 04/06/19 at 07:00; Stop 04/06/19 at 14:15; Status DC Fentanyl Citrate (Fentanyl 2ml Vial) 50 mcg PRN Q5MIN PRN IV MODERATE TO SEVERE PAIN Last administered on 04/06/19at 10:00; Start 04/06/19 at 07:00; Stop 04/06/19 at 14:15; Status DC Morphine Sulfate (Morphine Sulfate) 1 mg PRN Q10MIN PRN IV SEVERE PAIN 7-10; Start 04/06/19 at 07:00; Stop 04/06/19 at 14:15; Status DC Ringer's Solution 1,000 ml @ 30 mls/hr Q24H IV ; Start 04/06/19 at 07:00; Stop 04/06/19 at 17:17; Status DC Hydromorphone HCl (Dilaudid) 0.5 mg PRN Q10MIN PRN IV SEV PAIN, Second choice; Start 04/06/19 at 07:00; Stop 04/06/19 at 14:15; Status DC Prochlorperazine Edisylate (Compazine) 5 mg PACU PRN PRN IV NAUSEA, MRX1; Start 04/06/19 at 07:00; Stop 04/06/19 at 14:15; Status DC Pantoprazole Sodium (PROTONIX VIAL for IV PUSH) 40 mg DAILYAC IVP Last administered on 04/05/19at 11:12; Start 04/05/19 at 12:00; Stop 04/06/19 at 10:51; Status DC Hydromorphone HCl (Dilaudid) 1 mg PRN Q4HRS PRN IV SEVERE PAIN 7-10 Last administered on 04/06/19at 20:06; Start 04/05/19 at 12:00 Dexamethasone Sodium Phosphate (Decadron) 4 mg STK-MED ONCE .ROUTE ; Start 04/06/19 at 07:11; Stop 04/06/19 at 07:12; Status DC Propofol 20 ml @ As Directed STK-MED ONCE IV ; Start 04/06/19 at 07:11; Stop 04/06/19 at 07:12; Status DC Lidocaine HCl (Lidocaine Pf 2% Vial) 5 ml STK-MED ONCE .ROUTE ; Start 04/06/19 at 07:11; Stop 04/06/19 at 07:12; Status DC Ondansetron HCl (Zofran) 4 mg STK-MED ONCE .ROUTE ; Start 04/06/19 at 07:11; Stop 04/06/19 at 07:12; Status DC Rocuronium Riesel (Zemuron) 50 mg STK-MED ONCE .ROUTE ; Start 04/06/19 at 07:11; Stop 04/06/19 at 07:12; Status DC Iohexol (Omnipaque 300 Mg/ml) 50 ml STK-MED ONCE .ROUTE Last administered on 04/06/19at 08:13; Start 04/06/19 at 06:19; Stop 04/06/19 at 07:19; Status DC Cellulose (Surgicel Hemostat 4x8) 1 each STK-MED ONCE .ROUTE ; Start 04/06/19 at 06:19; Stop 04/06/19 at 07:19; Status DC Bupivacaine HCl/ Epinephrine Bitart (Sensorcaine-Epi 0.25%-1:226684 Mpf) 30 ml STK-MED ONCE .ROUTE Last administered on 04/06/19at 08:13; Start 04/06/19 at 06:19; Stop 04/06/19 at 07:20; Status DC Fentanyl Citrate (Fentanyl 2ml Vial) 100 mcg STK-MED ONCE .ROUTE ; Start 04/06/19 at 07:42; Stop 04/06/19 at 07:43; Status DC Midazolam HCl (Versed) 2 mg STK-MED ONCE .ROUTE ; Start 04/06/19 at 07:42; Stop 04/06/19 at 07:43; Status DC Ketorolac Tromethamine (Toradol For Or Only) 30 mg STK-MED ONCE INJ ; Start 04/06/19 at 07:42; Stop 04/06/19 at 07:43; Status DC Sevoflurane (Ultane) 60 ml STK-MED ONCE IH ; Start 04/06/19 at 07:42; Stop 04/06/19 at 07:43; Status DC Neostigmine Methylsulfate (Bloxiverz) 10 mg STK-MED ONCE .ROUTE ; Start 04/06/19 at 08:22; Stop 04/06/19 at 08:23; Status DC Glycopyrrolate (Robinul) 1 mg STK-MED ONCE .ROUTE ; Start 04/06/19 at 08:23; Stop 04/06/19 at 08:24; Status DC Glucagon (Glucagen) 1 mg STK-MED ONCE .ROUTE ; Start 04/06/19 at 07:35; Stop 04/06/19 at 08:36; Status DC Rocuronium Riesel (Zemuron) 50 mg STK-MED ONCE .ROUTE ; Start 04/06/19 at 08:43; Stop 04/06/19 at 08:44; Status DC Citalopram Hydrobromide (CeleXA) 10 mg DAILY PO Last administered on 04/07/19at 08:10; Start 04/06/19 at 11:00 Pantoprazole Sodium (Protonix) 40 mg DAILYAC PO Last administered on 04/07/19at 06:16; Start 04/07/19 at 07:30 Acetaminophen (Tylenol) 650 mg PRN Q6HRS PRN PO MILD TO MODERATE PAIN Last admi nistered on 04/06/19at 14:08; Start 04/06/19 at 14:00 Acetaminophen/ Hydrocodone Bitart (Lortab 5/325) 1 tab PRN Q4HRS PRN PO MO DERATE TO SEVERE PAIN Last administered on 04/07/19at 21:58; Start 04/06/19 at 20:30 Polyethylene Glycol (miraLAX PACKET) 17 gm BID PO Last administered on 04/07/19at 21:57; Start 04/07/19 at 21:00 Simethicone (Gas-X) 80 mg PRN AFTMEALHC PRN PO GAS / BLOATING Last administered on 04/07/19at 21:57; Start 04/07/19 at 19:45 Active Scripts Active Reported Prilosec Otc (Omeprazole Magnesium) 20 Mg Tablet. 1 Tab PO DAILY Lexapro (Escitalopram Oxalate) 5 Mg Tablet 1 Tab PO DAILY Vitals/I & O Vital Sign - Last 24 Hours 04/07/19 04/07/19 04/07/19 04/07/19 08:00 11:00 14:34 14:34 Temp 98.4 98.4 98.4 98.4 Pulse 75 74 Resp 18 16 16 B/P (MAP) 109/62 (78) 141/85 (103) Pulse Ox 94 96 O2 Delivery Room Air Room Air Room Air Room Air 04/07/19 04/07/19 04/07/19 04/07/19 17:53 19:00 20:20 21:58 Temp 98.2 98.2 Pulse 80 Resp 20 18 16 B/P (MAP) 113/74 (87) Pulse Ox 98 O2 Delivery Room Air Room Air Room Air Room Air 04/07/19 04/07/19 04/08/19 04/08/19 23:00 23:00 03:00 07:38 Temp 97.8 98.1 97.8 98.1 Pulse 66 76 Resp 16 18 18 B/P (MAP) 121/78 (92) 143/79 (100) Pulse Ox 98 98 95 O2 Delivery Room Air Room Air Room Air Room Air Intake and Output 04/07/19 04/07/19 04/08/19 15:00 23:00 07:00 Intake Total 100 ml 600 ml 100 ml Balance 100 ml 600 ml 100 ml MICHEAL SCOTT MD Apr 08, 2019 07:52
[2019-04-08] MEDS ORDERED: POTASSIUM CHLORIDE 20 MEQ TABLET.ER. PO ONE (08:00)
[2019-04-08] MEDS: CITALOPRAM 10 MG TABLET. PO SCH (08:25)
--- NOTE | 2019-04-08 08:46 | PDOC ---
SURGICAL PROGRESS NOTE Subjective pain managed no emesis Vital Signs Vital Signs Date Time Temp Pulse Resp B/P (MAP) Pulse Ox O2 Delivery O2 Flow Rate FiO2 04/08/19 07:38 95 Room Air 04/08/19 07:00 98.3 70 18 122/72 (89) 98.3 I&O Intake and Output 04/08/19 07:00 Intake Total 800 ml Balance 800 ml Intake Oral 600 ml IV Total 200 ml # Voids 8 General: Alert, Oriented X3, Cooperative, No acute distress Abdomen: Soft, Other (ND, lap dressings dry) Labs Laboratory Tests Test 04/07/19 04:55 04/08/19 05:25 Sodium Level 138 mmol/L (136-145) 137 mmol/L (136-145) Potassium Level 3.5 mmol/L (3.5-5.1) 3.4 mmol/L (3.5-5.1) Chloride Level 104 mmol/L (98-107) 103 mmol/L (98-107) Carbon Dioxide Level 25 mmol/L (21-32) 25 mmol/L (21-32) Anion Gap 9 (6-14) 9 (6-14) Blood Urea Nitrogen 7 mg/dL (7-20) 4 mg/dL (7-20) Creatinine 0.8 mg/dL (0.6-1.0) 0.7 mg/dL (0.6-1.0) Estimated GFR (Cockcroft-Gault) 79.9 93.2 BUN/Creatinine Ratio 9 (6-20) 6 (6-20) Glucose Level 98 mg/dL (70-99) 97 mg/dL (70-99) Calcium Level 8.2 mg/dL (8.5-10.1) 8.4 mg/dL (8.5-10.1) Total Bilirubin 1.3 mg/dL (0.2-1.0) 2.5 mg/dL (0.2-1.0) Aspartate Amino Transf (AST/SGOT) 302 U/L (15-37) 271 U/L (15-37) Alanine Aminotransferase (ALT/SGPT) 445 U/L (14-59) 470 U/L (14-59) Alkaline Phosphatase 172 U/L (46-116) 193 U/L (46-116) Total Protein 6.9 g/dL (6.4-8.2) 6.8 g/dL (6.4-8.2) Albumin 3.2 g/dL (3.4-5.0) 3.1 g/dL (3.4-5.0) Albumin/Globulin Ratio 0.9 (1.0-1.7) 0.8 (1.0-1.7) White Blood Count 6.3 x10^3/uL (4.0-11.0) Red Blood Count 4.29 x10^6/uL (3.50-5.40) Hemoglobin 12.5 g/dL (12.0-15.5) Hematocrit 36.2 % (36.0-47.0) Mean Corpuscular Volume 85 fL (79-100) Mean Corpuscular Hemoglobin 29 pg (25-35) Mean Corpuscular Hemoglobin Concent 35 g/dL (31-37) Red Cell Distribution Width 13.3 % (11.5-14.5) Platelet Count 307 x10^3/uL (140-400) Neutrophils (%) (Auto) 73 % (31-73) Lymphocytes (%) (Auto) 16 % (24-48) Monocytes (%) (Auto) 7 % (0-9) Eosinophils (%) (Auto) 2 % (0-3) Basophils (%) (Auto) 1 % (0-3) Neutrophils # (Auto) 4.6 x10^3/uL (1.8-7.7) Lymphocytes # (Auto) 1.0 x10^3/uL (1.0-4.8) Monocytes # (Auto) 0.5 x10^3/uL (0.0-1.1) Eosinophils # (Auto) 0.1 x10^3/uL (0.0-0.7) Basophils # (Auto) 0.0 x10^3/uL (0.0-0.2) Laboratory Tests Test 04/08/19 05:25 White Blood Count 6.3 x10^3/uL (4.0-11.0) Red Blood Count 4.29 x10^6/uL (3.50-5.40) Hemoglobin 12.5 g/dL (12.0-15.5) Hematocrit 36.2 % (36.0-47.0) Mean Corpuscular Volume 85 fL (79-100) Mean Corpuscular Hemoglobin 29 pg (25-35) Mean Corpuscular Hemoglobin Concent 35 g/dL (31-37) Red Cell Distribution Width 13.3 % (11.5-14.5) Platelet Count 307 x10^3/uL (140-400) Neutrophils (%) (Auto) 73 % (31-73) Lymphocytes (%) (Auto) 16 % (24-48) Monocytes (%) (Auto) 7 % (0-9) Eosinophils (%) (Auto) 2 % (0-3) Basophils (%) (Auto) 1 % (0-3) Neutrophils # (Auto) 4.6 x10^3/uL (1.8-7.7) Lymphocytes # (Auto) 1.0 x10^3/uL (1.0-4.8) Monocytes # (Auto) 0.5 x10^3/uL (0.0-1.1) Eosinophils # (Auto) 0.1 x10^3/uL (0.0-0.7) Basophils # (Auto) 0.0 x10^3/uL (0.0-0.2) Sodium Level 137 mmol/L (136-145) Potassium Level 3.4 mmol/L (3.5-5.1) Chloride Level 103 mmol/L (98-107) Carbon Dioxide Level 25 mmol/L (21-32) Anion Gap 9 (6-14) Blood Urea Nitrogen 4 mg/dL (7-20) Creatinine 0.7 mg/dL (0.6-1.0) Estimated GFR (Cockcroft-Gault) 93.2 BUN/Creatinine Ratio 6 (6-20) Glucose Level 97 mg/dL (70-99) Calcium Level 8.4 mg/dL (8.5-10.1) Total Bilirubin 2.5 mg/dL (0.2-1.0) Aspartate Amino Transf (AST/SGOT) 271 U/L (15-37) Alanine Aminotransferase (ALT/SGPT) 470 U/L (14-59) Alkaline Phosphatase 193 U/L (46-116) Total Protein 6.8 g/dL (6.4-8.2) Albumin 3.1 g/dL (3.4-5.0) Albumin/Globulin Ratio 0.8 (1.0-1.7) Assessment/Plan s/p lap khris ERCP planned today JASON MARTINS PANTS BUSHELER Apr 08, 2019 08:46
[2019-04-08] MEDS ORDERED: IV RINGERS,LACTATED 1000ML 1,000 ML IV ONE (09:30)
--- NOTE | 2019-04-08 10:44 | NUR ---
SS following for discharge planning. SS reviewed pt chart. Pt is from home and is currently on room air. No discharge needs noted at this time. SS will continue to follow for discharge planning.
[2019-04-08] MEDS ORDERED: IOHEXOL 300 MG/ML 100ML VIAL. ONE (11:52)
[2019-04-08] MEDS ORDERED: DEXAMETHASONE SOD PHOS 20 MG/5 ML VIAL. ONE (14:00)
[2019-04-08] MEDS ORDERED: LIDOCAINE 2% 100 MG/5 ML SYRINGE. ONE (14:00)
[2019-04-08] MEDS ORDERED: GLYCOPYRROLATE 1 MG/5 ML SYRINGE. ONE (14:00)
[2019-04-08] MEDS ORDERED: ROCURONIUM 50 MG/5 ML VIAL. ONE (14:00)
[2019-04-08] MEDS ORDERED: PROPOFOL 20 ML IV ONE (14:18)
[2019-04-08] MEDS ORDERED: IOHEXOL 350 MG/ML 100 ML VIAL. IV ONE (14:30)
[2019-04-08] MEDS ORDERED: ONDANSETRON PF 4 MG/2 ML VIAL. ONE (14:38)
--- NOTE | 2019-04-08 14:55 | PDOC4 ---
PROCEDURE Procedure ERCP/ES/balloon stone extraction Indication: choledocholithias Meds: GETA per anesthesia. Findings: Esophagus not well seen due to nature of scope. Cursory exam of stomach and duodenum normal. Major papilla edematous. CBD injection: small stone in mid-common duct. ES done. Balloon sweep with one stone seen to exit, ~4-5mm. Second balloon sweep with nothing exiting. Occlusion cholangiogram after w/o apparent further stone. Ike. well. IMP: choledocholithiasis, resolved. REC: clears today, advance in AM if ok. No ASA, NSAIDs for 2 weeks. Provided no problems overnight, discharge at discretion of surgery/primary services. FERCHO FLEMING MD Apr 08, 2019 14:55
[2019-04-08] MEDS: HYDROcodone/APAP 5/325MG 1 TAB TABLET PO PRN ×2 (16:31→20:18)
[2019-04-08] MEDS: POLYETHYLENE GLYCOL 3350 17 GM PACKET. PO SCH ×2 (16:32→20:18)
--- NOTE | 2019-04-08 16:45 | RAD ---
Intraoperative fluoroscopic support 04/08/2019 INDICATION: ERCP COMPARISON STUDY: None Discussion: Intraoperative fluoroscopic support was provided. Static images are submitted to PACS. 2 static images submitted to PACS demonstrate contrast within the biliary tree. Please refer to intraoperative notes for imaging findings and procedural details. Total fluoroscopy time 1.3 minutes Exposures: 2 Impression: Intraoperative fluoroscopic support Electronically signed by: Rony Hernandez MD (04/08/2019 4:42 PM) [id number]
[2019-04-09 03:00] VITALS: BP 123/67
[2019-04-09] MEDS: PIPERACILLIN/TAZOBACTAM 3.375 GM in IV NORMAL SALINE 50ML 50 ML IV SCH ×4 (05:53→11:30)
[2019-04-09] MEDS: PANTOPRAZOLE 40 MG TABLET.DR. PO SCH (05:53)
[2019-04-09 07:00] VITALS: BP 121/70
[2019-04-09 07:35] LABS: HEMATOCRIT 40.3 % (36.0-47.0); HEMOGLOBIN 13.8 g/dL (12.0-15.5); RED BLOOD COUNT 4.75 x10^6/uL (3.50-5.40); WHITE BLOOD COUNT 8.9 x10^3/uL (4.0-11.0)
[2019-04-09 07:52] LABS: ALBUMIN 3.6 g/dL (3.4-5.0); ALBUMIN/GLOBULIN RATIO 0.8 (1.0-1.7); CALCIUM 9.2 mg/dL (8.5-10.1); CREATININE 0.8 mg/dL (0.6-1.0); GFR 79.9; POTASSIUM 3.7 mmol/L (3.5-5.1); TOTAL BILIRUBIN 1.2 mg/dL (0.2-1.0)
[2019-04-09] MEDS: POLYETHYLENE GLYCOL 3350 17 GM PACKET. PO SCH (08:16)
[2019-04-09] MEDS: ENOXAPARIN 40 MG/0.4 ML SYRINGE. SQ SCH (08:16)
[2019-04-09] MEDS: CITALOPRAM 10 MG TABLET. PO SCH (08:16)
--- NOTE | 2019-04-09 08:40 | PDOC ---
SURGICAL PROGRESS NOTE Subjective Patient doing quite well with no complaints Vital Signs Vital Signs Date Time Temp Pulse Resp B/P (MAP) Pulse Ox O2 Delivery O2 Flow Rate FiO2 04/09/19 07:43 Room Air 04/09/19 07:00 97.8 55 16 121/70 (87) 95 97.8 04/08/19 15:05 5 I&O Intake and Output 04/09/19 06:59 Intake Total 750 ml Balance 750 ml IV Total 750 ml # Voids 4 PATIENT HAS A COLÓN: No General: Alert, Oriented X3, Cooperative, No acute distress Abdomen: Normal bowel sounds, Soft, No tenderness, Other (wounds clean dry and intact) Labs Laboratory Tests Test 04/08/19 05:25 04/09/19 07:00 White Blood Count 6.3 x10^3/uL (4.0-11.0) 8.9 x10^3/uL (4.0-11.0) Red Blood Count 4.29 x10^6/uL (3.50-5.40) 4.75 x10^6/uL (3.50-5.40) Hemoglobin 12.5 g/dL (12.0-15.5) 13.8 g/dL (12.0-15.5) Hematocrit 36.2 % (36.0-47.0) 40.3 % (36.0-47.0) Mean Corpuscular Volume 85 fL (79-100) 85 fL (79-100) Mean Corpuscular Hemoglobin 29 pg (25-35) 29 pg (25-35) Mean Corpuscular Hemoglobin Concent 35 g/dL (31-37) 34 g/dL (31-37) Red Cell Distribution Width 13.3 % (11.5-14.5) 13.0 % (11.5-14.5) Platelet Count 307 x10^3/uL (140-400) 390 x10^3/uL (140-400) Neutrophils (%) (Auto) 73 % (31-73) Lymphocytes (%) (Auto) 16 % (24-48) Monocytes (%) (Auto) 7 % (0-9) Eosinophils (%) (Auto) 2 % (0-3) Basophils (%) (Auto) 1 % (0-3) Neutrophils # (Auto) 4.6 x10^3/uL (1.8-7.7) Lymphocytes # (Auto) 1.0 x10^3/uL (1.0-4.8) Monocytes # (Auto) 0.5 x10^3/uL (0.0-1.1) Eosinophils # (Auto) 0.1 x10^3/uL (0.0-0.7) Basophils # (Auto) 0.0 x10^3/uL (0.0-0.2) Sodium Level 137 mmol/L (136-145) 138 mmol/L (136-145) Potassium Level 3.4 mmol/L (3.5-5.1) 3.7 mmol/L (3.5-5.1) Chloride Level 103 mmol/L (98-107) 100 mmol/L (98-107) Carbon Dioxide Level 25 mmol/L (21-32) 24 mmol/L (21-32) Anion Gap 9 (6-14) 14 (6-14) Blood Urea Nitrogen 4 mg/dL (7-20) 9 mg/dL (7-20) Creatinine 0.7 mg/dL (0.6-1.0) 0.8 mg/dL (0.6-1.0) Estimated GFR (Cockcroft-Gault) 93.2 79.9 BUN/Creatinine Ratio 6 (6-20) 11 (6-20) Glucose Level 97 mg/dL (70-99) 98 mg/dL (70-99) Calcium Level 8.4 mg/dL (8.5-10.1) 9.2 mg/dL (8.5-10.1) Total Bilirubin 2.5 mg/dL (0.2-1.0) 1.2 mg/dL (0.2-1.0) Aspartate Amino Transf (AST/SGOT) 271 U/L (15-37) 108 U/L (15-37) Alanine Aminotransferase (ALT/SGPT) 470 U/L (14-59) 384 U/L (14-59) Alkaline Phosphatase 193 U/L (46-116) 232 U/L (46-116) Total Protein 6.8 g/dL (6.4-8.2) 8.0 g/dL (6.4-8.2) Albumin 3.1 g/dL (3.4-5.0) 3.6 g/dL (3.4-5.0) Albumin/Globulin Ratio 0.8 (1.0-1.7) 0.8 (1.0-1.7) Laboratory Tests Test 04/09/19 07:00 White Blood Count 8.9 x10^3/uL (4.0-11.0) Red Blood Count 4.75 x10^6/uL (3.50-5.40) Hemoglobin 13.8 g/dL (12.0-15.5) Hematocrit 40.3 % (36.0-47.0) Mean Corpuscular Volume 85 fL (79-100) Mean Corpuscular Hemoglobin 29 pg (25-35) Mean Corpuscular Hemoglobin Concent 34 g/dL (31-37) Red Cell Distribution Width 13.0 % (11.5-14.5) Platelet Count 390 x10^3/uL (140-400) Sodium Level 138 mmol/L (136-145) Potassium Level 3.7 mmol/L (3.5-5.1) Chloride Level 100 mmol/L (98-107) Carbon Dioxide Level 24 mmol/L (21-32) Anion Gap 14 (6-14) Blood Urea Nitrogen 9 mg/dL (7-20) Creatinine 0.8 mg/dL (0.6-1.0) Estimated GFR (Cockcroft-Gault) 79.9 BUN/Creatinine Ratio 11 (6-20) Glucose Level 98 mg/dL (70-99) Calcium Level 9.2 mg/dL (8.5-10.1) Total Bilirubin 1.2 mg/dL (0.2-1.0) Aspartate Amino Transf (AST/SGOT) 108 U/L (15-37) Alanine Aminotransferase (ALT/SGPT) 384 U/L (14-59) Alkaline Phosphatase 232 U/L (46-116) Total Protein 8.0 g/dL (6.4-8.2) Albumin 3.6 g/dL (3.4-5.0) Albumin/Globulin Ratio 0.8 (1.0-1.7) I have reviewed the following Status post ERCP with extraction of common bile duct stone Assessment/Plan Status post laparoscopic cholecystectomy with intraoperative cholangiograms with retained common bile duct stone which was removed by ERCP she is doing quite well. From surgical standpoint can be discharged home to follow up with Dr. Salazar in 2 weeks UGO SALAZAR MD Apr 09, 2019 08:40
--- NOTE | 2019-04-09 09:52 | PDOC ---
Subjective: Subjective: [place] like she had a lump in her throat - better now. Tolerating clears. Mild RUQ incisional pain. Ready to go home. Objective: Vital Signs: Vital Signs Date Time Temp Pulse Resp B/P (MAP) Pulse Ox O2 Delivery O2 Flow Rate FiO2 04/09/19 07:43 Room Air 04/09/19 07:00 97.8 55 16 121/70 (87) 95 97.8 04/08/19 15:05 5 Labs: Laboratory Tests Test 04/09/19 07:00 White Blood Count 8.9 x10^3/uL Red Blood Count 4.75 x10^6/uL Hemoglobin 13.8 g/dL Hematocrit 40.3 % Mean Corpuscular Volume 85 fL Mean Corpuscular Hemoglobin 29 pg Mean Corpuscular Hemoglobin Concent 34 g/dL Red Cell Distribution Width 13.0 % Platelet Count 390 x10^3/uL Sodium Level 138 mmol/L Potassium Level 3.7 mmol/L Chloride Level 100 mmol/L Carbon Dioxide Level 24 mmol/L Anion Gap 14 Blood Urea Nitrogen 9 mg/dL Creatinine 0.8 mg/dL Estimated GFR (Cockcroft-Gault) 79.9 BUN/Creatinine Ratio 11 Glucose Level 98 mg/dL Calcium Level 9.2 mg/dL Total Bilirubin 1.2 mg/dL Aspartate Amino Transf (AST/SGOT) 108 U/L Alanine Aminotransferase (ALT/SGPT) 384 U/L Alkaline Phosphatase 232 U/L Total Protein 8.0 g/dL Albumin 3.6 g/dL Albumin/Globulin Ratio 0.8 Imaging: ERCP 04/08 Indication: choledocholithias Esophagus not well seen due to nature of scope. Cursory exam of stomach and duodenum normal. Major papilla edematous. CBD injection: small stone in mid-common duct. ES done. Balloon sweep with one stone seen to exit, ~4-5mm. Second balloon sweep with nothing exiting. Occlusion cholangiogram after w/o apparent further stone. IMP: choledocholithiasis, resolved. REC: clears today, advance in AM if ok. No ASA, NSAIDs for 2 weeks. Provided no problems overnight, discharge at discretion of surgery/primary services. PE: GEN: NAD LUNGS: CTAB HEART: RRR ABD: S/ND/NT NEURO/PSYCH: A & O �3 A/P: Cholelithiasis/choledocholithiasis s/p cholecystectomy and ERCP -- LFTs better. YOLY SILVA per primary. BRUNA AGUIRRE Apr 09, 2019 09:52
[2019-04-09 11:00] VITALS: BP 125/73
[2019-04-09] MEDS ORDERED: DOCU-109 PO (11:32)
[2019-04-09] MEDS ORDERED: HYDR-2761 PO (11:32)
--- NOTE | 2019-04-09 12:23 | PDOC3 ---
Discharge Summary Visit Information Date of Admission: Apr 05, 2019 Date of Discharge: Apr 09, 2019 Final Diagnosis Acute cholecystitis with choledocholithiasis Acute abd pain, w n/v Leukocytosis, no SIRS, Elevated LFTs, UTI GERD BMI 32 Brief Hospital Course Allergies Allergies Coded Allergies Type Severity Reaction Last Updated Verified No Known Drug Allergies 04/08/19 No Vital Signs Vital Signs Date Time Temp Pulse Resp B/P (MAP) Pulse Ox O2 Delivery O2 Flow Rate FiO2 04/09/19 07:43 Room Air 04/09/19 07:00 97.8 55 16 121/70 (87) 95 97.8 04/08/19 15:05 5 Lab Results Laboratory Tests Test 04/08/19 05:25 04/09/19 07:00 White Blood Count 6.3 x10^3/uL (4.0-11.0) 8.9 x10^3/uL (4.0-11.0) Red Blood Count 4.29 x10^6/uL (3.50-5.40) 4.75 x10^6/uL (3.50-5.40) Hemoglobin 12.5 g/dL (12.0-15.5) 13.8 g/dL (12.0-15.5) Hematocrit 36.2 % (36.0-47.0) 40.3 % (36.0-47.0) Mean Corpuscular Volume 85 fL (79-100) 85 fL (79-100) Mean Corpuscular Hemoglobin 29 pg (25-35) 29 pg (25-35) Mean Corpuscular Hemoglobin Concent 35 g/dL (31-37) 34 g/dL (31-37) Red Cell Distribution Width 13.3 % (11.5-14.5) 13.0 % (11.5-14.5) Platelet Count 307 x10^3/uL (140-400) 390 x10^3/uL (140-400) Neutrophils (%) (Auto) 73 % (31-73) Lymphocytes (%) (Auto) 16 % (24-48) Monocytes (%) (Auto) 7 % (0-9) Eosinophils (%) (Auto) 2 % (0-3) Basophils (%) (Auto) 1 % (0-3) Neutrophils # (Auto) 4.6 x10^3/uL (1.8-7.7) Lymphocytes # (Auto) 1.0 x10^3/uL (1.0-4.8) Monocytes # (Auto) 0.5 x10^3/uL (0.0-1.1) Eosinophils # (Auto) 0.1 x10^3/uL (0.0-0.7) Basophils # (Auto) 0.0 x10^3/uL (0.0-0.2) Sodium Level 137 mmol/L (136-145) 138 mmol/L (136-145) Potassium Level 3.4 mmol/L (3.5-5.1) 3.7 mmol/L (3.5-5.1) Chloride Level 103 mmol/L (98-107) 100 mmol/L (98-107) Carbon Dioxide Level 25 mmol/L (21-32) 24 mmol/L (21-32) Anion Gap 9 (6-14) 14 (6-14) Blood Urea Nitrogen 4 mg/dL (7-20) 9 mg/dL (7-20) Creatinine 0.7 mg/dL (0.6-1.0) 0.8 mg/dL (0.6-1.0) Estimated GFR (Cockcroft-Gault) 93.2 79.9 BUN/Creatinine Ratio 6 (6-20) 11 (6-20) Glucose Level 97 mg/dL (70-99) 98 mg/dL (70-99) Calcium Level 8.4 mg/dL (8.5-10.1) 9.2 mg/dL (8.5-10.1) Total Bilirubin 2.5 mg/dL (0.2-1.0) 1.2 mg/dL (0.2-1.0) Aspartate Amino Transf (AST/SGOT) 271 U/L (15-37) 108 U/L (15-37) Alanine Aminotransferase (ALT/SGPT) 470 U/L (14-59) 384 U/L (14-59) Alkaline Phosphatase 193 U/L (46-116) 232 U/L (46-116) Total Protein 6.8 g/dL (6.4-8.2) 8.0 g/dL (6.4-8.2) Albumin 3.1 g/dL (3.4-5.0) 3.6 g/dL (3.4-5.0) Albumin/Globulin Ratio 0.8 (1.0-1.7) 0.8 (1.0-1.7) Laboratory Tests Test 04/09/19 07:00 White Blood Count 8.9 x10^3/uL (4.0-11.0) Red Blood Count 4.75 x10^6/uL (3.50-5.40) Hemoglobin 13.8 g/dL (12.0-15.5) Hematocrit 40.3 % (36.0-47.0) Mean Corpuscular Volume 85 fL (79-100) Mean Corpuscular Hemoglobin 29 pg (25-35) Mean Corpuscular Hemoglobin Concent 34 g/dL (31-37) Red Cell Distribution Width 13.0 % (11.5-14.5) Platelet Count 390 x10^3/uL (140-400) Sodium Level 138 mmol/L (136-145) Potassium Level 3.7 mmol/L (3.5-5.1) Chloride Level 100 mmol/L (98-107) Carbon Dioxide Level 24 mmol/L (21-32) Anion Gap 14 (6-14) Blood Urea Nitrogen 9 mg/dL (7-20) Creatinine 0.8 mg/dL (0.6-1.0) Estimated GFR (Cockcroft-Gault) 79.9 BUN/Creatinine Ratio 11 (6-20) Glucose Level 98 mg/dL (70-99) Calcium Level 9.2 mg/dL (8.5-10.1) Total Bilirubin 1.2 mg/dL (0.2-1.0) Aspartate Amino Transf (AST/SGOT) 108 U/L (15-37) Alanine Aminotransferase (ALT/SGPT) 384 U/L (14-59) Alkaline Phosphatase 232 U/L (46-116) Total Protein 8.0 g/dL (6.4-8.2) Albumin 3.6 g/dL (3.4-5.0) Albumin/Globulin Ratio 0.8 (1.0-1.7) Brief Hospital Course Ms. Plummer is a 38 old admit with acute abd pain 04/06 cholecystectomy w/ IOC //. Dr. Crandall 04/08 ERCP/ES/balloon stone extraction, DR. Browning choledocholithias labs better, pain better Discharge Information Condition at Discharge: Improved Follow Up: Weeks Disposition/Orders: D/C to Home Scheduled Escitalopram Oxalate (Lexapro) 5 Mg Tablet, 1 TAB PO DAILY for Anxiety, #30 Ref 2 (Reported) Entered as Reported by: KAREN YOUNG on 04/05/19946 Last Action: Converted on 04/06/191044 by UGO EDEN MD Omeprazole Magnesium (Prilosec Otc) 20 Mg Tablet.dr, 1 TAB PO DAILY for Reflux, #30 Ref 3 (Reported) Entered as Reported by: KAREN YOUNG on 04/05/19946 Last Action: Converted on 04/06/191044 by UGO EDEN MD Scheduled PRN Docusate Sodium (Colace) 100 Mg Capsule, 100 MG PO PRN BID PRN for CONSTIPATION, #30 Prescribed by: CASSI HICKS on 04/09/19 1132 Hydrocodone Bit/Acetaminophen (Hydrocodone-Apap 5-325 ) 1 Tab Tablet, 1 TAB PO PRN Q4HRS PRN for MODERATE TO SEVERE PAIN, #10 Prescribed by: CASSI HICKS on 04/09/19 1132 Patient Instructions Patient Instructions face to face CASSI CASTELAN MD Apr 09, 2019 12:23
--- NOTE | 2019-04-09 14:44 | NUR ---
pt is discharged home with self care at 1430 via ambulation via this RN. pt is in stable condition. pt has all belongings with her. pt received discharge instructions and prescriptions and stated she had no further questions for me.
--- NOTE | 2019-04-10 17:06 | PATHOLOGY ---
[facility] Accession Number: [id number] . 01 Material submitted: . gallbladder - GALLBLADDER . 01 Clinical history: . None provided . 02 Diagnosis: Gallbladder, laparoscopic cholecystectomy: - Cholelithiasis. - Acute and chronic cholecystitis within increased eosinophils. (JPM:[facility] 04/10/2019) P/04/10/2019 . 02 Comment: There is no evidence of malignancy. (JPM:[facility] 04/10/2019) . 02 Electronically signed: . Luis Alfredo Nixon MD, Pathologist NPI- [id number] . 01 Gross description: . Received in formalin labeled "Phyllis Plummer, gallbladder," is an intact, turgid gallbladder measuring 8.0 x 3.4 x 2.7 cm in greatest dimensions. The serosal surface is smooth to shaggy, pale miller to dusky chacon-miller and focally hemorrhagic in appearance. A possible serosal surface defect is noted near the fundus, measuring 0.5 x 0.2 cm and extending to within 6.9 cm of the infundibulum. Opening the specimen reveals a partially granular to extensively trabeculated, pale miller to dark brown mucosa measuring 0.1 cm in thickness, with a gallbladder wall thickness of up to 0.3 cm. No polyps or nodules are noted grossly. The gallbladder interior is filled with a tenacious green-brown bile containing yellow-brown calculi ranging from 0.1 to 0.8 cm in maximum dimension. Line Mechanic sections of the infundibulum, body and fundus are submitted in cassette A1, to representatively include the possible serosal surface defect. (DAC; 04/09/2019) XDC/XDC . 02 Pathologist provided ICD-10: K80.12 . 02 CPT . 065448 Specimen Comment: A courtesy copy of this report has been sent to Specimen Comment: [phone], . Specimen Comment: Report sent to / DR EDEN Performed at: 01 [facility] [id number] [address] [id number] MD Minesh Urban MD Phone: [phone] Performed at: 02 [facility] [address] [place], [place] [id number] MD Luis Alfredo Nixon MD Phone: [phone]
== END 2019-04-09 14:30 | disposition home or self-care (01) | DRG 418 ==
LOC: 4 NORTH 08:59
PROVIDERS: ADMIT Family Medicine; ATTEND Family Medicine
PROC: BF131ZZ Fluoroscopy of Gallbladder and Bile Ducts using Low Osmolar Contrast (ICD-10-PCS; 2019-04-06)
PROC: 0FT44ZZ Resection of Gallbladder, Percutaneous Endoscopic Approach (ICD-10-PCS; principal; 2019-04-06 08:00)
PROC: 0FC98ZZ Extirpation of Matter from Common Bile Duct, Via Natural or Artificial Opening Endoscopic (ICD-10-PCS; 2019-04-08)
DX: K80.63 Calculus of gallbladder and bile duct with acute cholecystitis with obstruction (principal); N39.0 Urinary tract infection, site not specified; F41.9 Anxiety disorder, unspecified; K21.9 Gastro-esophageal reflux disease without esophagitis; K83.8 Other specified diseases of biliary tract; G43.909 Migraine, unspecified, not intractable, without status migrainosus; Z90.79 Acquired absence of other genital organ(s)
CPT/HCPCS: 36415; 43262; 43264; 74328; 76705; 80053; 81001; 81025; 85025; 85027; 87040; 88304; 94760; A7015; C1726; C9113; J1100; J1170; J1610; J1650; J1885; J2001; J2250; J2405; J2543; J2704; J2710; J3010; J3490; J7030; J7120; Q9967